=== PATIENT | female | born 1990 | race Caucasian/White ===

== ENCOUNTER → 2016-08-25 | Outpatient (CLI) | payer OTHER ==
[~2016-08-25] MED LIST: IMPLANON
[2016-08-25 17:55] LABS: BASO % 0.3 %; BASO ABS # 0.03 K/uL (0-0.2); COMPLETE YES; EOS % 1.7 %; HEMATOCRIT 41.7 % (37-47); IG% 0.2 %; LYMPH % 22.3 %; LYMPH ABS # 2.33 K/uL (1.2-3.4); MEAN CELL VOLUME 85.5 fL (80-100); MEAN CORPUSCULAR HEMOGLOBIN 29.9 pg (25-34); MEAN PLATELET VOLUME 11.9 fL (7.4-10.4); MONO % 8.8 %; NEUT % 66.7 %; PLATELET COUNT 248 K/uL (130-400); RED BLOOD COUNT 4.88 M/uL (4.2-5.4); WHITE BLOOD COUNT 10.44 K/uL (4.8-10.8)
[2016-08-25 18:05] LABS: BLOOD UREA NITROGEN 8 mg/dl (7-18); BUN/CREATININE RATIO 11.3 (10-20); CALCIUM 9.1 mg/dl (8.5-10.1); CARBON DIOXIDE 27 mmol/L (21-32); CHLORIDE 106 mmol/L (98-107); CREATININE 0.67 mg/dl (0.60-1.20); GLUCOSE 87 mg/dl (70-99); POTASSIUM 3.8 mmol/L (3.5-5.1); SODIUM 141 mmol/L (136-145)
== END | disposition home or self-care (01) ==
LOC: C.LABPVFM 15:18
PROVIDERS: ATTEND Nurse Practitioner
DX: R53.83 Other fatigue (principal); F32.9 Major depressive disorder, single episode, unspecified; R51 Headache

== ENCOUNTER 2017-07-24 19:33 | Emergency (ER) | payer OTHER ==
[~2017-07-24] VITALS: Ht 160 cm; Wt 90.0 kg
[2017-07-24 19:35] VITALS: TEMP 37.4; Ht 160 cm; Wt 90.0 kg
[2017-07-24] MEDS ORDERED: AZITHROMYCIN 250 MG TAB PO STA (19:46)
[2017-07-24] MEDS ORDERED: IBUPROFEN 600 MG TAB PO STA (19:46)
[2017-07-24] MEDS ORDERED: AZIT-60 PO (19:49)
[2017-07-24] MEDS ORDERED: ESCI10TA17 PO (19:50)
[2017-07-24] MEDS ORDERED: CHOL20009 PO (19:50)
[2017-07-24] MEDS ORDERED: IUD'IUD (19:50)
--- NOTE | 2017-07-24 19:52 | EMERGENCY ROOM VISIT NOTE ---
History Report prepared by Susan: Ingrid David Under the Supervision of: Dr. Curry Harvey M.D. First contact with patient: 19:39 Chief Complaint: ILLNESS Stated Complaint: SORE THROAT, FEVER, BODY ACHE History of Present Illness The patient is a 26 year old female who presents to the Emergency Room with complaints of a constant sore throat beginning yesterday. The patient states that she has been having body aches, a sore throat, headache, and a fever since yesterday. She reports that she took Tylenol yesterday without any relief. She notes that she has had strep throat once before and her symptoms feel very similar. The patient denies any abdominal pain and urinary symptoms. Source of History: patient Onset: yesterday Position: throat Quality: other (sore) Timing: constant Associated Symptoms: + fevers, + headache, No abdominal pain, No urinary symptoms Note: Pt complains of body aches. Review of Systems See HPI for pertinent positives & negatives. A total of 10 systems reviewed and were otherwise negative. Past Medical & Surgical Surgical Problems: (1) Nasal polyp (2) Status post tonsillectomy and adenoidectomy Family History No pertinent family history stated. 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 Throat mildly injected, able to swallow her own saliva. NECK: Supple no nuchal rigidity. No evidence of meningitis or encephalitis on exam. CHEST: Good equal expansion LUNGS: Clear and equal to auscultation CARDIAC: Normal S1 and S2 ABDOMEN: Soft nontender no guarding BACK: No CVA tenderness EXTREMITIES: No pain upon palpation normal muscle strength in all groups no clubbing cyanosis or edema NEURO: Patient is following commands and answering questions appropriately. Alert and oriented x3 Cranial Nerves 2-12 grossly intact Medical Decision & Procedures Medications Administered Medications (Trade) Dose Ordered Sig/Renny Route Start Time Stop Time Status Last Admin Dose Admin Azithromycin (Zithromax Tab) 500 mg NOW STAT PO 07/24/17 19:46 07/24/17 19:47 DC 07/24/17 20:04 500 MG Ibuprofen (Motrin Tab) 600 mg NOW STAT PO 07/24/17 19:46 07/24/17 19:47 DC 07/24/17 20:03 600 MG ED Course 1938: Past medical records reviewed. The patient was evaluated in room A11. A complete history and physical examination was performed. 1945: I offered to do lab work and the patient refused. 1945: Motrin Tab 600mg PO, Zithromax Tab 500mg PO. 1956: Upon reexamination the patient is doing well. I discussed results and treatment plan with the patient. She verbalizes agreement and understanding. The patient is ready for discharge. Medical Decision Differential diagnosis: Etiologies such as viral syndrome, tonsillitis, streptococcal pharyngitis, mononucleosis, peritonsillar abscess, retropharyngeal abscess, otitis, pneumonia , influenza, as well as others were entertained. This is a 26 rolled female who presents emergency department complaining of strep throat like symptoms. The patient reports that this is the wish to refill she has strep throat. She is refusing any other laboratory work. She has no evidence of meningitis encephalitis on examination and is able swallow her own saliva. The patient has been on azithromycin previously for her strep throat. Her strep at this point is negative however I'll write patient a prescription which she can take at home if she test positive over the next 48 hours. Patient and family were in agreement with the treatment plan. Medication Reconcilliation Current Medication List: was personally reviewed by me Blood Pressure Screening Patient's blood pressure: Normal blood pressure Blood pressure disposition: Did not require urgent referral Impression Primary Impression: Pharyngitis Scribe Attestation The scribe's documentation has been prepared under my direction and personally reviewed by me in its entirety. I confirm that the note above accurately reflects all work, treatment, procedures, and medical decision making performed by me. Departure Information Dispostion Home / Self-Care Prescriptions Azithromycin (ZITHROMAX) 250 Mg Tab 500 MG PO DAILY for 4 Days, #8 TAB Prov: Curry Harvey MD 07/24/17 Forms HOME CARE DOCUMENTATION FORM, IMPORTANT VISIT INFORMATION, WORK / SCHOOL INSTRUCTIONS Patient Instructions ED Pharyngitis Viral Report Pending, ED Strep Pharyngitis Poss, My [facility] Additional Instructions Increase fluids next 48 hours Take 1000 mg Tylenol every 6 hours Take 600 mg Ibuprofen every 6 hours You have been examined and treated today on an emergency basis only. This is not a substitute for, or an effort to provide, complete comprehensive medical care. It is impossible to recognize and treat all injuries or illnesses in a single emergency department visit. It is therefore important that you follow up closely with your PCP. Call as soon as possible for an appointment. Thank you for your time and consideration. I look forward to speaking with you again soon. Please don't hesitate to call us if you have any questions. Problem Qualifiers Primary Impression: Pharyngitis Pharyngitis/tonsillitis etiology: unspecified etiology Qualified Codes: J02.9 - Acute pharyngitis, unspecified
[2017-07-24 20:04] VITALS: BP 125/73; PULSE 100; O2SAT 96
== END 2017-07-24 20:05 | disposition home or self-care (01) ==
LOC: C.EDB 19:34 → C.EDA 20:05
DX: J02.9 Acute pharyngitis, unspecified (principal)

== ENCOUNTER 2025-01-18 19:28 | Inpatient (IN) ==
--- NOTE | 2025-01-18 19:56 | Emergency Department Note ---
Impression & Plan Abdominal pain, left lower quadrant, Perforated bowel ED Provider Note HISTORY OF PRESENT ILLNESS: Patient is a 34-year-old female presenting with abdominal pain. Patient reports she started having abdominal pain starting 2 weeks ago. Reports the pain worsened in the last week. Reports that she thought it was another episode of diverticulitis and called her primary care provider who started her on Augmentin 4 days ago. States that she was still having persistent pain and her doctor ordered a CT abdomen/pelvis with IV and oral contrast which was obtained yesterday. Patient reports she was called by her PCP today to present to the emergency department due to potential bowel perforation. Patient denies any nausea. Reports she is not really having much in terms of bowel movements. Reports that when she does have a bowel movement it is very small and abnormal. Denies any measured fevers. Denies any chest pain or shortness of breath. Denies any history of IBS or Crohn's. She reports she is never had surgery on her abdomen. ROS: as above PHYSICAL EXAM: Constitutional: Patient appears in no acute distress. HENT: Head: Normocephalic and atraumatic. Eyes: EOMI, PERRL Mouth/Throat: Mucous membranes moist. Neck: Trachea midline. Neck supple. Cardiovascular: Tachycardic with regular rhythm. No murmurs, rubs or gallops. Intact distal pulses. Pulmonary/Chest: No respiratory distress. Breath sounds clear and equal bilaterally. No wheezes or rales. Abdominal: Abdomen soft, no rebound or guarding. Left lower quadrant tender to palpation. Musculoskeletal: No edema, tenderness or deformity noted. Skin: Warm and dry. No rash, erythema, pallor or cyanosis Psychiatric: Appropriate mood and affect for situation. Neurological: Alert and keenly responsive. CN II-XII grossly intact, moving all extremities equally and fully. MDM: - Vitals signs showed hypertension and tachycardia. - History obtained via patient. History as above. - Chronic conditions affecting care: none - Differential diagnoses include, but are not limited to: Diverticulitis; bowel obstruction; bowel perforation - Order placed for continuous cardiac monitoring. At this time, monitor showed rate of 98 bpm with normal sinus rhythm, per my interpretation. - External medical records reviewed. CT abdomen/pelvis with IV and oral contrast obtained on 01/17/2025 at 1:14 PM was reviewed. It showed "rectosigmoid wall thickening with adjacent irregular 5.0 cm soft tissue attenuation and surrounding inflammatory changes and possible focus of free air. Differentials include rectosigmoid colitis with a contained perforation, inflammatory bowel disease of the rectosigmoid with developing fistula versus malignancy. Colonoscopy is recommended following treatment." CT imaging was read at 1521 on 01/18/2025. - Laboratory workup interpreted by myself showed slight leukocytosis (WBC 11.04); normal electrolytes; normal lactate; normal lipase; negative hCG - KUB negative for obvious pneumoperitoneum - Discussed case with general surgeon on-call, Dr. Escoto, 195. He recommended admission for IV antibiotics and GI consultation for colonoscopy. - 1L NS and IV zosyn ordered in ER. - Discussion was had with shoe parts caser about patient's case and need for admission - Hospitalist, Dr. Encinas, consulted for admission - Patient admitted to [facility] for further evaluation and management. ASSESSMENT AND PLAN: Diagnosis: Left lower quadrant abdominal pain; bowel perforation Plan: Admit Past Med/Surg History Problem List (Updated 01/18/25 @ 22:24 by Madhavi Bernstein MD) Abdominal pain, left lower quadrant (Acute) Perforated bowel (Acute) Abdominal pain Diverticulitis large intestine Social History Smoking Status: Never smoker Preferred Language: Maltese Feels Safe at Home: Yes Allergies Allergies Allergy/AdvReac Type Severity Reaction Status Date / Time amoxicillin Allergy Intermediate RASH Unverified 07/24/17 19:51 Penicillins Allergy Mild Unverified 07/24/17 19:51 Home Meds Home Medications Medication Instructions Recorded Confirmed No Known Home Medications 01/18/25 01/18/25 Results & Data (ED) Vital Signs Vital Signs - 24 hr 01/18/25 19:29 01/18/25 20:00 01/18/25 20:08 Temperature 36.6 C Temperature Source Temporal Artery Scan Pulse Rate 106 H 101 H 103 H Pulse Rate from SpO2 Sensor Pulse Rhythm Respiratory Rate 16 20 Respiratory Effort / Characteristics Non-Labored Spontaneous Respiratory Depth Normal Blood Pressure 142/91 H 119/89 Blood Pressure Mean 108 95 Blood Pressure Position Sitting Pulse Oximetry 98 99 Oxygen Delivery Method Room Air Oxygen Flow Rate Sepsis Recent Fever Within 48 Hours No Sepsis New/Unexplained Change in Mental Status No Sepsis Action Taken by Nursing No Action Required 01/18/25 20:25 01/18/25 20:30 01/18/25 20:31 Temperature Temperature Source Pulse Rate 100 H 90 98 H Pulse Rate from SpO2 Sensor 95 H Pulse Rhythm Regular Respiratory Rate 20 16 22 Respiratory Effort / Characteristics Respiratory Depth Blood Pressure 118/91 118/91 Blood Pressure Mean 100 105 Blood Pressure Position Pulse Oximetry 98 98 100 Oxygen Delivery Method Room Air Oxygen Flow Rate 0 Sepsis Recent Fever Within 48 Hours Sepsis New/Unexplained Change in Mental Status Sepsis Action Taken by Nursing Laboratory Data 01/18/25 20:10 01/18/25 20:10 Lab Results 01/18/25 01/18/25 Range/Units 19:50 20:10 WBC 11.04 H (4.8-10.8) K/ul RBC 4.72 (4.20-5.40) M/uL Hgb 12.9 (12.0-16.0) g/dl Hct 39.8 (37.0-47.0) % MCV 84.3 (80.0-100.0) fL MCH 27.3 (25.0-34.0) pg MCHC 32.4 (32.0-36.0) g/dL RDW Std Deviation 36.5 (36.4-46.3) fL RDW Coeff of Radha 12.0 (11.5-14.5) % Plt Count 364 (130-400) K/uL MPV 10.7 (9.4-12.4) fL Immature Gran % (Auto) 0.5 % Neut % (Auto) 76.1 % Lymph % (Auto) 16.4 % [place] % (Auto) 5.8 % Eos % (Auto) 0.7 % Baso % (Auto) 0.5 % Neut # (Auto) 8.40 H (1.40-6.50) K/uL Lymph # (Auto) 1.81 (1.20-3.40) K/uL [place] # (Auto) 0.64 H (0.11-0.59) K/uL Eos # (Auto) 0.08 (0.00-0.50) K/uL Baso # (Auto) 0.05 (0.00-0.20) K/uL Immature Gran # (Auto) 0.06 (0.01-0.20) K/uL Sodium 140 (136-145) mmol/L Potassium 4.0 (3.5-5.1) mmol/L Chloride 106 (98-107) mmol/L Carbon Dioxide 26 (21-32) mmol/L Anion Gap 8 (3-11) BUN 17 (6-23) mg/dl Creatinine 0.67 (0.6-1.2) mg/dl Est Cr Clr Drug Dosing 132.8 ml/min eGFR 117.55 BUN/Creatinine Ratio 25.4 H (10-20) Glucose 87 (70-99(Fasting)) mg/dl Lactate 0.6 (0.4-2.0) mmol/L Calcium 9.3 (8.6-10.3) mg/dl Total Bilirubin 0.5 (0.2-1.0) mg/dl AST 9 L (13-39) U/L ALT 18 (7-52) U/L Alkaline Phosphatase 141 H (34-104) U/L Total Protein 7.8 (6.0-8.3) gm/dl Albumin 4.1 (3.4-5.0) gm/dl Globulin 3.7 (2.5-4.0) gm/dl Albumin/Globulin Ratio 1.1 (0.9-2) Lipase 19 (11-82) U/L HCG, Qual Negative (Negative) Urine Color Yellow Urine Appearance Cloudy A (Clear) Urine pH 5.5 (4.5-7.5) Ur Specific [place]inn 1.038 H (1.000-1.030) Urine Protein Trace H (Negative) Urine Glucose (UA) Negative (Negative) Urine Ketones 1+ H (Negative) Urine Blood Trace H (Negative) Urine Nitrite Negative (Negative) Urine Bilirubin Negative (Negative) Urine Urobilinogen Negative (Negative) Ur Leukocyte Esterase Negative (Negative) Urine WBC (Auto) 0-5 (0-5) /hpf Urine RBC (Auto) 3-5 H (0-2) /hpf U Hyaline Cast (Auto) 0-2 (0-2) /lpf U Epithel Cells (Auto) 0-2 (0-2) /hpf Urine Bacteria (Auto) None Seen (None Seen) Urine Comment Administered Medications Discontinued Medications Sodium Chloride (Nss) 1,000 mls @ 999 mls/hr IV .Q1H1M ONE Stop: 01/18/25 20:37 Last Infusion: 01/18/25 21:46 Dose: Infused Documented By: Admin: 01/18/25 20:16 Dose: 999 mls/hr Documented By: ZAHEER Piperacillin Sod/Tazobactam Sod (Zosyn) 4.5 gm in 100 mls @ 200 mls/hr IV NOW ONE; Protocol Stop: 01/18/25 20:20 Last Infusion: 01/18/25 20:50 Dose: Infused Documented By: Admin: 01/18/25 20:16 Dose: 200 mls/hr Documented By: ZAHEER Imaging Data Radiologist's Impression: KUB X-Ray 01/18/25 19:34 Exam(s): XR KUB EXAM: XR Abdomen, 1 View CLINICAL HISTORY: reported bowel perf yesterday. TECHNIQUE: Frontal supine view of the abdomen/pelvis. COMPARISON: CT abdomen and pelvis 02/14/2024 FINDINGS: Intraperitoneal space: Nonspecific bowel gas pattern with scattered gas predominantly in nondilated colonic segments. Moderate stool burden. Evaluation for pneumoperitoneum is limited on this single projection presumed supine study. Gastrointestinal tract: Unremarkable. No dilation. 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 Bones/joints: Curvilinear density overlying the right iliac crest is presumed hyperdense material in a normal-caliber appendix. Incidental IUD noted in central pelvis. No acute fracture. IMPRESSION: Limited single projection examination demonstrates a nonspecific, nonobstructive bowel gas pattern. Evaluation for pneumoperitoneum is limited. Electronically signed by: Vinny Renee MD 01/18/25 20:49 PM Discharge Plan Visit Data Chief Complaint: Abdominal Pain Stated Complaint: ABD ISSUES ED Provider: Madhavi Bernstein Discharge Problem: Abdominal pain, left lower quadrant, Perforated bowel Condition: Fair Forms Stand Alone Forms: Art Circle Prescriptions Prescriptions: No Action No Known Home Medications Referrals Referrals: Viviana Del Rio DO [Primary Care Provider] -
[2025-01-18] MEDS: SODIUM CHLORIDE 0.9% 1,000 ML IV ONE (20:16)
[2025-01-18] MEDS: PIPERACILLIN/TAZOBACTAM 4.5 GM/100 ML BAG IV ONE (20:16)
[2025-01-18 20:17] LABS: Appearance Urine Cloudy (Clear); Bacteria Urine Automated None Seen (None Seen); Bilirubin Urine Negative (Negative); Blood Urine Trace (Negative); Cast Urine Automated 0-2 /lpf (0-2); Color Urine Yellow; Epithelial Cell Urine Auto 0-2 /hpf (0-2); Glucose Urine UA Negative (Negative); Ketones Urine 1+ (Negative); Leukocyte Esterase Urine Negative (Negative); Nitrite Urine Negative (Negative); Protein Urine Trace (Negative); Specific Gravity Urine 1.038 (1.000-1.030); Urobilinogen Urine Negative (Negative); WBC Urine Automated 0-5 /hpf (0-5); pH Urine 5.5 (4.5-7.5)
[2025-01-18 20:43] LABS: Pregnancy Test, Serum Negative (Negative)
[2025-01-18 20:44] LABS: Albumin Globulin Ratio 1.1 (0.9-2); Albumin Level 4.1 gm/dl (3.4-5.0); BUN Creatinine Ratio 25.4 (10-20); Bilirubin,Total 0.5 mg/dl (0.2-1.0); Calcium 9.3 mg/dl (8.6-10.3); Creatinine Clr Calc Pharmacy 132.8 ml/min; Globulin 3.7 gm/dl (2.5-4.0); Total Protein 7.8 gm/dl (6.0-8.3)
[2025-01-18 20:49] LABS: Basophils # (auto) 0.05 K/uL (0.00-0.20); Basophils % (auto) 0.5 %; Eosinophils # (auto) 0.08 K/uL (0.00-0.50); Eosinophils % (auto) 0.7 %; Hematocrit (blood only) 39.8 % (37.0-47.0); Hemoglobin 12.9 g/dl (12.0-16.0); Immature Granulocytes # (auto) 0.06 K/uL (0.01-0.20); Immature Granulocytes % (auto) 0.5 %; Lymphocytes # (auto) 1.81 K/uL (1.20-3.40); Lymphocytes % (auto) 16.4 %; Mean Corpuscular Hemoglobin 27.3 pg (25.0-34.0); Mean Corpuscular Hgb Conc 32.4 g/dL (32.0-36.0); Mean Corpuscular Volume 84.3 fL (80.0-100.0); Mean Platelet Volume 10.7 fL (9.4-12.4); Monocytes # (auto) 0.64 K/uL (0.11-0.59); Monocytes % (auto) 5.8 %; Neutrophils % (auto) 76.1 %; Platelet Count 364 K/uL (130-400); RDW Standard Deviation 36.5 fL (36.4-46.3); Red Blood Count 4.72 M/uL (4.20-5.40); White Blood Count 11.04 K/ul (4.8-10.8)
--- NOTE | 2025-01-18 20:50 | XRay Report ---
Exam(s): XR KUB EXAM: XR Abdomen, 1 View CLINICAL HISTORY: reported bowel perf yesterday. TECHNIQUE: Frontal supine view of the abdomen/pelvis. COMPARISON: CT abdomen and pelvis 02/14/2024 FINDINGS: Intraperitoneal space: Nonspecific bowel gas pattern with scattered gas predominantly in nondilated colonic segments. Moderate stool burden. Evaluation for pneumoperitoneum is limited on this single projection presumed supine study. Gastrointestinal tract: Unremarkable. No dilation. 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 Bones/joints: Curvilinear density overlying the right iliac crest is presumed hyperdense material in a normal-caliber appendix. Incidental IUD noted in central pelvis. No acute fracture. IMPRESSION: Limited single projection examination demonstrates a nonspecific, nonobstructive bowel gas pattern. Evaluation for pneumoperitoneum is limited. Electronically signed by: Vinny Renee MD 01/18/25 20:49 PM
--- NOTE | 2025-01-18 21:27 | History & Physical Report ---
Date of Service January 18, 2025 Assessment & Plan (1) Diverticulitis large intestine: Plan: Patient admitted for abdominal pain, diverticulitis and failed outpatient therapy. CT scan yesterday as an outpatient showed rectosigmoid wall thickening with adjacent irregular 5 cm soft tissue attenuation and surrounding inflammatory changes and possible focus of free air. Continue IV Zosyn Continue IV fluids N.p.o. Consult surgery Consult GI (2) Abdominal pain: Plan: Analgesia as needed (3) Perforated bowel: Plan: R/O perforation. CT scan yesterday as an outpatient showed rectosigmoid wall thickening with adjacent irregular 5 cm soft tissue attenuation and surrounding inflammatory changes and possible focus of free air. Plan Pt is a full code A total of 60 minutes spent in care planning for this patient History of Present Illness Chief Complaint: Worsening abdominal pain Primary Care Provider: Viviana Del Rio DO Trinidad Suresh is a 34 y/o F who presents with worsening abdominal pain and diverticulitis. She has had abdominal pain in the left lower quadrant for about 2 weeks. She called her primary care provider who started her on Augmentin 4 days ago. She that she was still having persistent pain despite the antibiotic and her PCP ordered a CT abdomen/pelvis with IV and oral contrast which was obtained yesterday. Patient reports she was called by her PCP today to present to the emergency department due to potential walled off bowel perforation versus inflammatory bowel disease versus mass with fistula. Patient denies nausea. Reports she is not really having much in terms of bowel movements. Reports that when she does have a bowel movement it is very small and abnormal. Denies any fevers or chills. Denies any chest pain or shortness of breath. Denies any history of IBS or Crohn's. She reports she has not had prior surgery on her abdomen. In the ED the patient was started on IV Zosyn. She was given IV fluids and surgery was consulted. WBC is mildly elevated at 11.04 otherwise her labs look unremarkable Allergies Allergy/AdvReac Type Severity Reaction Status Date / Time amoxicillin Allergy Intermediate RASH Unverified 07/24/17 19:51 Penicillins Allergy Mild Unverified 07/24/17 19:51 Home Medications Medication Instructions Recorded Confirmed Type No Known Home Medications 01/18/25 01/18/25 History Past Med/Surg History Problem List (Updated 01/18/25 @ 21:29 by Aron Burgos DO) Perforated bowel Abdominal pain Diverticulitis large intestine Social History Smoking Status: Never smoker Preferred Language: [place] Feels Safe at Home: Yes Review of Systems Review of Systems: Constitutional- no fever; no weight loss Eyes- no acute visual changes ENT- no sinus drainage; no pharyngitis Pulmonary- no cough, no wheezing, no shortness of breath Cardiac- no chest pain, no palpitations, no orthopnea, no dependent edema GI- no nausea, no vomiting, no diarrhea, no melena, no hematochezia - no dysuria, no hematuria Musculoskeletal- no arthralgias, no myalgias Derm- no rashes, no new skin lesions, no changing skin lesions Hematologic- no unusual bruising, no unusual bleeding Lymphatics- no adenopathy Endocrine- no polyuria or polydipsia; no heat or cold intolerance Neuro- no headaches, no focal neurologic symptoms Psych- no anxiety, no depression Physical Exam Physical Exam: General- adult Head- atraumatic Eyes- PERRL, EOMI, anicteric ENT- oropharynx clear Neck- supple, no JVD, no adenopathy, no thyromegaly; carotids +2/2, no bruits appreciated Lungs- clear to auscultation and percussion Heart- regular rhythm; no murmur, no gallop, no rub appreciated Abdomen- normal bowel sounds, soft, nontender, no masses or hepatosplenomegaly Extremities- no pretibial edema, no calf tenderness; peripheral pulses intact Neuro- alert, oriented x 3; PERRL, EOMI; no facial palsy; no dysarthria; motor 5/5 bilaterally; no cogwheel rigidity; patellar DTRs +2/2; toes downgoing bilaterally; finger to nose intact bilaterally Skin- warm & dry Results & Data Results & Data Vital Signs (Past 12 Hours) Vital Signs Temp Pulse Resp BP Pulse Ox O2 Del Method O2 Flow Rate 01/18/25 20:30 90 16 118/91 98 01/18/25 20:25 100 H 20 98 Room Air 0 01/18/25 20:08 103 H 01/18/25 20:00 101 H 20 119/89 99 01/18/25 19:29 36.6 C 106 H 16 142/91 H 98 Room Air Diagnostic Findings Laboratory Results WBC 11.04 K/ul (4.8-10.8) H 06/18/25 20:10 RBC 4.72 M/uL (4.20-5.40) 01/18/25 20:10 Hgb 12.9 g/dl (12.0-16.0) 01/18/25 20:10 Hct 39.8 % (37.0-47.0) 01/18/25 20:10 MCV 84.3 fL (80.0-100.0) 01/18/25 20:10 MCH 27.3 pg (25.0-34.0) 01/18/25 20:10 MCHC 32.4 g/dL (32.0-36.0) 01/18/25 20:10 RDW Std Deviation 36.5 fL (36.4-46.3) 01/18/25 20:10 RDW Coeff of Radha 12.0 % (11.5-14.5) 01/18/25 20:10 Plt Count 364 K/uL (130-400) 01/18/25 20:10 MPV 10.7 fL (9.4-12.4) 01/18/25 20:10 Immature Gran % (Auto) 0.5 % 01/18/25 20:10 Neut % (Auto) 76.1 % 01/18/25 20:10 Lymph % (Auto) 16.4 % 01/18/25 20:10 [place] % (Auto) 5.8 % 01/18/25 20:10 Eos % (Auto) 0.7 % 01/18/25 20:10 Baso % (Auto) 0.5 % 01/18/25 20:10 Neut # (Auto) 8.40 K/uL (1.40-6.50) H 01/18/25 20:10 Lymph # (Auto) 1.81 K/uL (1.20-3.40) 01/18/25 20:10 [place] # (Auto) 0.64 K/uL (0.11-0.59) H 01/18/25 20:10 Eos # (Auto) 0.08 K/uL (0.00-0.50) 01/18/25 20:10 Baso # (Auto) 0.05 K/uL (0.00-0.20) 01/18/25 20:10 Immature Gran # (Auto) 0.06 K/uL (0.01-0.20) 01/18/25 20:10 Sodium 140 mmol/L (136-145) 01/18/25 20:10 Potassium 4.0 mmol/L (3.5-5.1) 01/18/25 20:10 Chloride 106 mmol/L (98-107) 01/18/25 20:10 Carbon Dioxide 26 mmol/L (21-32) 01/18/25 20:10 Anion Gap 8 (3-11) 01/18/25 20:10 BUN 17 mg/dl (6-23) 01/18/25 20:10 Creatinine 0.67 mg/dl (0.6-1.2) 01/18/25 20:10 Est Cr Clr Drug Dosing 132.8 ml/min 01/18/25 20:10 eGFR 117.55 01/18/25 20:10 BUN/Creatinine Ratio 25.4 (10-20) H 01/18/25 20:10 Glucose 87 mg/dl (70-99(Fasting)) 01/18/25 20:10 Lactate 0.6 mmol/L (0.4-2.0) 01/18/25 20:10 Calcium 9.3 mg/dl (8.6-10.3) 01/18/25 20:10 Total Bilirubin 0.5 mg/dl (0.2-1.0) 01/18/25 20:10 AST 9 U/L (13-39) L 01/18/25 20:10 ALT 18 U/L (7-52) 01/18/25 20:10 Alkaline Phosphatase 141 U/L (34-104) H 01/18/25 20:10 Total Protein 7.8 gm/dl (6.0-8.3) 01/18/25 20:10 Albumin 4.1 gm/dl (3.4-5.0) 01/18/25 20:10 Globulin 3.7 gm/dl (2.5-4.0) 01/18/25 20:10 Albumin/Globulin Ratio 1.1 (0.9-2) 01/18/25 20:10 Lipase 19 U/L (11-82) 01/18/25 20:10 HCG, Qual Negative (Negative) 01/18/25 20:10 Urine Color Yellow 01/18/25 19:50 Urine Appearance Cloudy (Clear) A 01/18/25 19:50 Urine pH 5.5 (4.5-7.5) 01/18/25 19:50 Ur Specific [place] 1.038 (1.000-1.030) H 01/18/25 19:50 Urine Protein Trace (Negative) H 01/18/25 19:50 Urine Glucose (UA) Negative (Negative) 01/18/25 19:50 Urine Ketones 1+ (Negative) H 01/18/25 19:50 Urine Blood Trace (Negative) H 01/18/25 19:50 Urine Nitrite Negative (Negative) 01/18/25 19:50 Urine Bilirubin Negative (Negative) 01/18/25 19:50 Urine Urobilinogen Negative (Negative) 01/18/25 19:50 Ur Leukocyte Esterase Negative (Negative) 01/18/25 19:50 Urine WBC (Auto) 0-5 /hpf (0-5) 01/18/25 19:50 Urine RBC (Auto) 3-5 /hpf (0-2) H 01/18/25 19:50 U Hyaline Cast (Auto) 0-2 /lpf (0-2) 01/18/25 19:50 U Epithel Cells (Auto) 0-2 /hpf (0-2) 01/18/25 19:50 Urine Bacteria (Auto) None Seen (None Seen) 01/18/25 19:50 Urine Comment 01/18/25 19:50 Impressions KUB X-Ray 01/18/25 19:34 Exam(s): XR KUB EXAM: XR Abdomen, 1 View CLINICAL HISTORY: reported bowel perf yesterday. TECHNIQUE: Frontal supine view of the abdomen/pelvis. COMPARISON: CT abdomen and pelvis 02/14/2024 FINDINGS: Intraperitoneal space: Nonspecific bowel gas pattern with scattered gas predominantly in nondilated colonic segments. Moderate stool burden. Evaluation for pneumoperitoneum is limited on this single projection presumed supine study. Gastrointestinal tract: Unremarkable. No dilation. 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 Bones/joints: Curvilinear density overlying the right iliac crest is presumed hyperdense material in a normal-caliber appendix. Incidental IUD noted in central pelvis. No acute fracture. IMPRESSION: Limited single projection examination demonstrates a nonspecific, nonobstructive bowel gas pattern. Evaluation for pneumoperitoneum is limited. Electronically signed by: Vinny Renee MD 01/18/25 20:49 PM
[2025-01-18] MEDS ORDERED: MELATONIN 3 MG TAB PO PRN (23:24)
[2025-01-18] MEDS ORDERED: HYDROmorphone INJ 0.5 MG/0.5 ML SYR IV PRN (23:24)
[2025-01-18] MEDS ORDERED: ALUMINUM/MAGNESIUM SUSP 30 ML UDC PO PRN (23:24)
[2025-01-18] MEDS ORDERED: ONDANSETRON INJ 2 MG/ML 2 ML VIAL IV PRN (23:24)
[2025-01-18] MEDS: ACETAMINOPHEN 325 MG TAB PO PRN (23:28)
[2025-01-18] MEDS: SODIUM CHLORIDE 0.9% 500 ML IV SCH (23:52)
[2025-01-19] MEDS: PIPERACILLIN/TAZOBACTAM 4.5 GM/100 ML BAG IV SCH (02:54)
[2025-01-19 05:58] LABS: Hematocrit (blood only) 36.9 % (37.0-47.0); Hemoglobin 12.1 g/dl (12.0-16.0); Mean Corpuscular Hemoglobin 27.6 pg (25.0-34.0); Mean Corpuscular Hgb Conc 32.8 g/dL (32.0-36.0); Mean Corpuscular Volume 84.1 fL (80.0-100.0); Mean Platelet Volume 10.4 fL (9.4-12.4); Platelet Count 327 K/uL (130-400); RDW Coefficient of Variation 11.9 % (11.5-14.5); RDW Standard Deviation 36.3 fL (36.4-46.3); Red Blood Count 4.39 M/uL (4.20-5.40); White Blood Count 10.33 K/ul (4.8-10.8)
[2025-01-19 06:14] LABS: BUN Creatinine Ratio 21.1 (10-20); Calcium 8.4 mg/dl (8.6-10.3); Magnesium 2.1 mg/dl (1.7-2.4)
--- NOTE | 2025-01-19 09:41 | Surgery Consultation ---
Date of Consultation January 19, 2025 Assessment & Plan (1) Diverticulitis large intestine: most likely diverticular process IV abx can begin clears if GI not planning more urgent colonoscopy will definitively need colonoscopy either as inpatient or outpatient no surgical intervention indicated as improving on abx once colon is evaluated would recommend out-patient follow-up with colorectal surgeon for consideration of resection History of Present Illness Attending Physician: Beatrice Gonsales MD History of Present Illness This is 34YO admitted with acute LLQ abdominal pain that started 2 weeks ago. She was previously treated for diverticular attack. She was started as an outpatient on Augmentin. She did not respond well and her doctor ordered a CT abdomen/pelvis with IV and oral contrast which was obtained which showed reportedly a sigmoid inflammatory process and a possible retroperitoneal perforation. No fevers, chest pain or shortness of breath. She denies any history of IBS or Crohn's. She feels better this AM after IV abx begun. Allergies Allergy/AdvReac Type Severity Reaction Status Date / Time amoxicillin Allergy Intermediate RASH Verified 01/18/25 23:54 Penicillins Allergy Mild Rash Verified 01/18/25 23:54 Home Medications Medication Instructions Recorded Confirmed Type No Known Home Medications 01/18/25 01/18/25 History Patient History Social History Smoking Status: Never smoker Hx Alcohol Use: No Hx Substance Use: No Preferred Language: [place] Communication Ability: Effective Sound Effects Supervisor Required: No Beliefs That Will Affect Care: None Current Living Situation: Family Feels Safe at Home: Yes Review of Systems Constitutional: no fever, no chills and no anorexia Eyes: no problem reported Ear, Nose, Mouth, Throat: no problem reported Respiratory: no cough and no dyspnea Cardiovascular: no chest pain Gastrointestinal: + abdominal pain; no nausea, no vomiting and no change in bowel habits Genitourinary: no dysuria Musculoskeletal: no back pain Integumentary: no problem reported Neurologic: no localized weakness and no generalized weakness Psychiatric: no behavioral changes Hematologic / Lymphatic: no easy bleeding and no easy bruising Physical Exam Constitutional: WD/WN, vitals as above Eyes: no scleral abnormality ENMT: external ear and nose normal, oropharynx normal Neck: trachea midline Respiratory: normal respiratory effort Cardiovascular: Rate/Rhythm: regular rate and regular rhythm Gastrointestinal (Abdomen): Inspection/Auscultation: abdomen normal to inspection; abdomen not distended Percussion/Palpation: + abdomen tender and abdomen soft; no guarding and abdomen not rigid Musculoskeletal: Head/Neck/Chest: normocephalic and head atraumatic Skin: no rashes, warm and dry Results & Data Vital Signs (Past 12 Hours) Vital Signs Temp Pulse Pulse Pulse Pulse Resp BP 01/19/25 07:38 36.7 C 82 16 01/18/25 23:42 01/18/25 23:42 36.7 C 92 H 18 01/18/25 22:30 92 H 22 147/93 H 01/18/25 22:00 96 H 20 BP BP Pulse Ox O2 Del Method 01/19/25 07:38 110/76 98 Room Air 01/18/25 23:42 Room Air 01/18/25 23:42 132/83 98 Room Air 01/18/25 22:30 97 01/18/25 22:00 122/77 99 Room Air
--- NOTE | 2025-01-19 09:57 | Gastrointestinal Consultation ---
Date of Consultation January 19, 2025 Assessment & Plan (1) Diverticulitis large intestine: 34 year old female with history of anxiety and others below who is admitted for management of abnormal imaging w/ concern for diverticulitis w/ perforation. CTAP yesterday w/ rectosigmoid wall thickening with adjacent irregular 5.0 cm soft tissue attenuation and surrounding inflammatory changes and possible focus of free air. She is improving in IV abx and notes improvement of pain frequency and severity. No acute indication for endoscopic evaluation. Appreciate general surgery recommendations. Recommend NPO for bowel rest w/ dietary advancement per general surgery. Continue IV ABX. Should keep OP colonoscopy with [facility] as scheduled. I spent a total of 50 minutes on the date of service in review of patient's record, and previously obtained information in person and appropriate medical visit, discussion and education of plan, with patient and/or caregiver, placing orders for tests/referral/procedures as medically necessary and documentation of pertinent clinical information in patient's medical records for their visit today. Supervising Physician Co-Signing Physician Notes Second bout of diverticulitis in a year. Responds fairly promptly to antibiotics. CT consistent with diverticulitis. Atypical is her young age and female sex. Recommend treat as diverticulitis outpatient colonoscopy. Prevention of recurrent diverticulitis is an inexact signs. Though we recommended she increase her dietary fiber once this is resolved. Avoid too much red meat and avoid NSAIDs. Vitamin D supplements can be helpful. Patient does note she is vitamin D deficient. Vitamin D deficiency seems to be associated increased risk of diverticulitis relapse. History of Present Illness Reason for Consultation: Diverticulitis with possible perforation Requesting Physician: Beatrice Gonsales MD Attending Physician: Beatrice Gonsales MD History of Present Illness 34 year old female with history of anxiety and others below who is admitted for management of abnormal imaging w/ concern for diverticulitis w/ perforation. She notes she was treated w/ a course of ABX about two weeks ago as an OP for weber spected diverticulitis w/ plan for an OP CT. Her symptoms of lower abdominal pain worsened over the last week despite dietary change and ABX use. CTAP yesterday w/ rectosigmoid wall thickening with adjacent irregular 5.0 cm soft tissue attenuation and surrounding inflammatory changes and possible focus of free air. She was admitted through the ED, made NPO and started on IV ABX. This AM she notes she is more comfortable. Abd pain is improving. Pain is less severe, less frequent. Denies black or bloody stools. Denies any chronic GI symptoms but does report an episode of diverticulitis about one year ago. Is scheduled for an OP colonoscopy in March with [facility]. CTAP 2024: Peritoneum/Retroperitoneum: Irregular 5.0 x 4.6 cm soft tissue attenuation with surrounding inflammatory changes. Possible focus of free air twin the bowel and soft tissue area. Diffuse wall thickening of the rectosigmoid. No additional abnormal bowel wall thickening or dilated bowel loops. Normal appendix. No significant inflammation of the terminal ileum. Lymph nodes: No lymphadenopathy. IMPRESSION Rectosigmoid wall thickening with adjacent irregular 5.0 cm soft tissue attenuation and surrounding inflammatory changes and possible focus of free air. Differentials include rectosigmoid colitis with contained perforation, inflammatory bowel disease of the rectosigmoid with developing fistula versus malignancy. Colonoscopy is recommended following treatment. Allergies Allergy/AdvReac Type Severity Reaction Status Date / Time No Known Allergies Allergy Verified 01/19/25 11:44 Home Medications Medication Instructions Recorded Confirmed Type No Known Home Medications 01/18/25 01/18/25 History Patient History Social History Smoking Status: Never smoker Hx Alcohol Use: No Hx Substance Use: No Preferred Language: [place] Communication Ability: Effective Cnmt Required: No Beliefs That Will Affect Care: None Current Living Situation: Family Feels Safe at Home: Yes Assistive Devices: None Review of Systems Review of Systems: All other findings negative except as noted in HPI. Physical Exam Constitutional: WD/WN, vitals as above Respiratory: normal respiratory effort, lungs clear to auscultation Cardiovascular: Rate/Rhythm: regular rate and regular rhythm Gastrointestinal (Abdomen): Percussion/Palpation: + abdomen tender and abdomen soft; no guarding and abdomen not rigid Skin: no rashes, warm and dry Results & Data Vital Signs (Past 12 Hours) Vital Signs Temp Pulse Pulse Pulse Pulse Resp BP 01/19/25 07:38 98.1 F 82 16 01/18/25 23:42 01/18/25 23:42 98.1 F 92 H 18 01/18/25 22:30 92 H 22 147/93 H 01/18/25 22:00 96 H 20 BP BP Pulse Ox O2 Del Method 01/19/25 07:38 110/76 98 Room Air 01/18/25 23:42 Room Air 01/18/25 23:42 132/83 98 Room Air 01/18/25 22:30 97 01/18/25 22:00 122/77 99 Room Air Laboratory Results 01/19/25 01/18/25 01/18/25 Range/Units 05:36 20:10 19:50 WBC 10.33 11.04 H (4.8-10.8) K/ul RBC 4.39 4.72 (4.20-5.40) M/uL Hgb 12.1 12.9 (12.0-16.0) g/dl Hct 36.9 L 39.8 (37.0-47.0) % MCV 84.1 84.3 (80.0-100.0) fL MCH 27.6 27.3 (25.0-34.0) pg MCHC 32.8 32.4 (32.0-36.0) g/dL RDW Std Deviation 36.3 L 36.5 (36.4-46.3) fL RDW Coeff of Radha 11.9 12.0 (11.5-14.5) % Plt Count 327 364 (130-400) K/uL MPV 10.4 10.7 (9.4-12.4) fL Immature Gran % (Auto) 0.5 % Neut % (Auto) 76.1 % Lymph % (Auto) 16.4 % [place] % (Auto) 5.8 % Eos % (Auto) 0.7 % Baso % (Auto) 0.5 % Neut # (Auto) 8.40 H (1.40-6.50) K/uL Lymph # (Auto) 1.81 (1.20-3.40) K/uL [place] # (Auto) 0.64 H (0.11-0.59) K/uL Eos # (Auto) 0.08 (0.00-0.50) K/uL Baso # (Auto) 0.05 (0.00-0.20) K/uL Immature Gran # (Auto) 0.06 (0.01-0.20) K/uL Sodium 138 140 (136-145) mmol/L Potassium 4.0 4.0 (3.5-5.1) mmol/L Chloride 108 H 106 (98-107) mmol/L Carbon Dioxide 24 26 (21-32) mmol/L Anion Gap 6 8 (3-11) BUN 12 17 (6-23) mg/dl Creatinine 0.57 L 0.67 (0.6-1.2) mg/dl Est Cr Clr Drug Dosing 156.0 132.8 ml/min eGFR 122.22 117.55 BUN/Creatinine Ratio 21.1 H 25.4 H (10-20) Glucose 91 87 (70-99(Fasting)) mg/dl Lactate 0.6 (0.4-2.0) mmol/L Calcium 8.4 L 9.3 (8.6-10.3) mg/dl Magnesium 2.1 (1.7-2.4) mg/dl Total Bilirubin 0.5 (0.2-1.0) mg/dl AST 9 L (13-39) U/L ALT 18 (7-52) U/L Alkaline Phosphatase 141 H (34-104) U/L Total Protein 7.8 (6.0-8.3) gm/dl Albumin 4.1 (3.4-5.0) gm/dl Globulin 3.7 (2.5-4.0) gm/dl Albumin/Globulin Ratio 1.1 (0.9-2) Lipase 19 (11-82) U/L HCG, Qual Negative (Negative) Urine Color Yellow Urine Appearance Cloudy A (Clear) Urine pH 5.5 (4.5-7.5) Ur Specific [place] 1.038 H (1.000-1.030) Urine Protein Trace H (Negative) Urine Glucose (UA) Negative (Negative) Urine Ketones 1+ H (Negative) Urine Blood Trace H (Negative) Urine Nitrite Negative (Negative) Urine Bilirubin Negative (Negative) Urine Urobilinogen Negative (Negative) Ur Leukocyte Esterase Negative (Negative) Urine WBC (Auto) 0-5 (0-5) /hpf Urine RBC (Auto) 3-5 H (0-2) /hpf U Hyaline Cast (Auto) 0-2 (0-2) /lpf U Epithel Cells (Auto) 0-2 (0-2) /hpf Urine Bacteria (Auto) None Seen (None Seen) Urine Comment PG Care Time/CCT Total # of Minutes Spent Total Time Spent with Patient: Total time spent is greater than 50% in coordination of care (as documented) at patient's floor/unit and/or counseling patient: Coding Level of Care Code 60548 IN/OBS CONSULT LVL 3,45M Diagnoses Diverticulitis large intestine K57.32
[2025-01-19] MEDS ORDERED: Nursing to Pharmacy Communication SCH (11:45)
--- NOTE | 2025-01-19 13:32 | Hospitalist Progress Note ---
Date of Service January 19, 2025 Assessment & Plan (1) Diverticulitis large intestine: Plan: Patient admitted for abdominal pain, diverticulitis and failed outpatient therapy. CT scan yesterday as an outpatient showed rectosigmoid wall thickening with adjacent irregular 5 cm soft tissue attenuation and surrounding inflammatory changes and possible focus of free air. Continue IV Zosyn Continue IV fluids Appreciate surgery input and recommendation for conservative management Appreciate GI input and recommendation She has been feeling much better, left lower quadrant abdominal pain is better and no sign of guarding and rigidity No fever no chills and white count is elevated Will start clears orally and continue current care (2) Abdominal pain: Plan: Analgesia as needed (3) Perforated bowel: Plan: R/O perforation. CT scan yesterday as an outpatient showed rectosigmoid wall thickening with adjacent irregular 5 cm soft tissue attenuation and surrounding inflammatory changes and possible focus of free air. Doubt any perforation If observing Plan DVT prophylaxis SCDs for now and increase ambulation Pt is a full code Admission and Anticipated Discharge Date Admission Date: January 18, 2025 Subjective 01/19/2025 The patient was seen and examined in medical floor She was admitted with acute left lower quadrant pain and CT evidence as an outp atient with sigmoid diverticulitis and possible perforation She has improved a lot since admission and the pain is improved Making bowel movement and does not have any abdominal distention Denies any fever no chills Review of Systems Review of Systems: All systems reviewed and are unremarkable except as noted below Physical Exam Physical Exam: Lying in bed without any acute distress Constitutional: well developed, well nourished, + ill appearing and + obese Eyes: PERRL, conjunctivae normal, anicteric sclerae ENMT: external ear and nose normal, oropharynx normal Respiratory: no respiratory distress Auscultation: lungs clear to auscultat ion bilaterally Cardiovascular: Rate/Rhythm: regular rate and regular rhythm; not tachycardic Heart Sounds: normal S1 and normal S2; no murmur Extremities: no edema Gastrointestinal (Abdomen): Inspection/Auscultation: normal bowel sounds; abdomen not distended Percussion/Palpation: + abdomen tender ( left lower quadrant, no guarding and no rigidity) Musculoskeletal: No acute arthritis involving any of the joint Neurologic: normal touch/pain/proprioception and moves all extremities; no focal motor deficits Psychiatric: A+Ox3, euthymic affect Lymphatic: no cervical or axillary lymphadenopathy Results & Data Results & Data Vital Signs (Past 12 Hours) Vital Signs Temp Pulse Pulse Resp BP Pulse Ox O2 Del Method 01/19/25 12:47 36.9 C 79 16 124/74 Room Air 01/19/25 07:38 36.7 C 82 16 110/76 98 Room Air Laboratory Results Short CBC 01/18/25 01/19/25 Range/Units 20:10 05:36 WBC 11.04 H 10.33 (4.8-10.8) K/ul Hgb 12.9 12.1 (12.0-16.0) g/dl Hct 39.8 36.9 L (37.0-47.0) % Plt Count 364 327 (130-400) K/uL BMP 01/18/25 01/19/25 20:10 05:36 Sodium 140 138 Potassium 4.0 4.0 Chloride 106 108 H Carbon Dioxide 26 24 BUN 17 12 Creatinine 0.67 0.57 L Glucose 87 91 Calcium 9.3 8.4 L Liver Function 01/18/25 Range/Units 20:10 Total Bilirubin 0.5 (0.2-1.0) mg/dl AST 9 L (13-39) U/L ALT 18 (7-52) U/L Alkaline Phosphatase 141 H (34-104) U/L Albumin 4.1 (3.4-5.0) gm/dl Urine 01/18/25 Range/Units 19:50 Urine Color Yellow Urine Appearance Cloudy A (Clear) Urine pH 5.5 (4.5-7.5) Ur Specific [place] 1.038 H (1.000-1.030) Urine Protein Trace H (Negative) Urine Glucose (UA) Negative (Negative) Medications Administered Current Inpatient Medications Acetaminophen (Acetaminophen 325 Mg Tab) 650 mg PO Q4H PRN PRN Reason: Pain or Fever Stop: 02/17/25 23:23 Last Admin: 01/19/25 11:15 Dose: 650 mg Al Hydrox/Mg Hydrox/Simethicone (Aluminum/Magnesium Susp 30 Ml Udc) 15 ml PO Q4H PRN PRN Reason: Dyspepsia Stop: 02/17/25 23:23 Hydromorphone HCl (Hydromorphone Inj 0.5 Mg/0.5 Ml Syr) 0.5 mg IV Q6H PRN PRN Reason: Pain Stop: 02/01/25 23:23 Piperacillin Sod/Tazobactam Sod (Zosyn) 4.5 gm in 100 mls @ 25 mls/hr IV Q8H [facility]; Protocol Stop: 01/29/25 01:59 Last Admin: 01/19/25 10:26 Dose: 25 mls/hr Melatonin (Melatonin 3 Mg Tab) 3 mg PO HS PRN PRN Reason: Sleep Stop: 02/17/25 23:23 Ondansetron HCl (Ondansetron Inj 2 Mg/Ml 2 Ml Vial) 4 mg IV Q6H PRN PRN Reason: Nausea Stop: 02/17/25 23:23
[2025-01-20 08:39] LABS: Basophils # (auto) 0.04 K/uL (0.00-0.20); Basophils % (auto) 0.5 %; Eosinophils # (auto) 0.14 K/uL (0.00-0.50); Eosinophils % (auto) 1.7 %; Hematocrit (blood only) 40.3 % (37.0-47.0); Hemoglobin 13.1 g/dl (12.0-16.0); Immature Granulocytes # (auto) 0.02 K/uL (0.01-0.20); Immature Granulocytes % (auto) 0.2 %; Lymphocytes # (auto) 1.97 K/uL (1.20-3.40); Lymphocytes % (auto) 23.8 %; Mean Corpuscular Hemoglobin 27.6 pg (25.0-34.0); Mean Corpuscular Hgb Conc 32.5 g/dL (32.0-36.0); Mean Platelet Volume 10.4 fL (9.4-12.4); Monocytes # (auto) 0.27 K/uL (0.11-0.59); Monocytes % (auto) 3.3 %; Neutrophils # (auto) 5.82 K/uL (1.40-6.50); Neutrophils % (auto) 70.5 %; Platelet Count 354 K/uL (130-400); RDW Coefficient of Variation 11.9 % (11.5-14.5); RDW Standard Deviation 37.2 fL (36.4-46.3); Red Blood Count 4.74 M/uL (4.20-5.40); White Blood Count 8.26 K/ul (4.8-10.8)
--- NOTE | 2025-01-20 09:35 | Surgery Progress Note ---
Date of Service January 20, 2025 Assessment & Plan (1) Diverticulitis large intestine: Plan: avss no leukocytosis Plan: no surgical intervention indicated as improving on abx outpatient colonoscopy scheduled for March continue IV abx, would recommend at least another day of IV abx with transition to oral abx for total of [address] scan findings once colon is evaluated would recommend out-patient follow-up with colorectal surgeon for consideration of resection continue medical management encourage ambulation full liquids later today Dr. Patton on for weekend Admission and Anticipated Discharge Date Admission Date: January 18, 2025 Subjective feeling better abdominal pain pressure in low central pelvic area, worse when feels like she has to pee no n,v no fevers or chills tolerating clears +flatus and BM yesterday Physical Exam Constitutional: WD/WN, vitals as above + obese, cooperative and comfortable; no acute distress and not ill appearing Gastrointestinal (Abdomen): Inspection/Auscultation: abdomen normal to inspection; abdomen not distended Percussion/Palpation: + abdomen tender (suprapubic, LLQ) and abdomen soft; no guarding, abdomen not rigid and abdomen not firm Skin: no rashes, warm and dry Psychiatric: Orientation: alert and oriented x 3 Results & Data Vital Signs (Past 12 Hours) Vital Signs Temp Pulse Resp BP Pulse Ox O2 Del Method 01/20/25 07:38 36.7 C 76 16 119/78 97 Room Air Laboratory Results 01/20/25 Range/Units 08:20 WBC 8.26 (4.8-10.8) K/ul RBC 4.74 (4.20-5.40) M/uL Hgb 13.1 (12.0-16.0) g/dl Hct 40.3 (37.0-47.0) % MCV 85.0 (80.0-100.0) fL MCH 27.6 (25.0-34.0) pg MCHC 32.5 (32.0-36.0) g/dL RDW Std Deviation 37.2 (36.4-46.3) fL RDW Coeff of Radha 11.9 (11.5-14.5) % Plt Count 354 (130-400) K/uL MPV 10.4 (9.4-12.4) fL Immature Gran % (Auto) 0.2 % Neut % (Auto) 70.5 % Lymph % (Auto) 23.8 % [place] % (Auto) 3.3 % Eos % (Auto) 1.7 % Baso % (Auto) 0.5 % Neut # (Auto) 5.82 (1.40-6.50) K/uL Lymph # (Auto) 1.97 (1.20-3.40) K/uL [place] # (Auto) 0.27 (0.11-0.59) K/uL Eos # (Auto) 0.14 (0.00-0.50) K/uL Baso # (Auto) 0.04 (0.00-0.20) K/uL Immature Gran # (Auto) 0.02 (0.01-0.20) K/uL
--- NOTE | 2025-01-20 13:08 | Hospitalist Progress Note ---
Date of Service January 20, 2025 Assessment & Plan (1) Diverticulitis large intestine: Plan: Patient admitted for abdominal pain, diverticulitis and failed outpatient therapy. CT scan yesterday as an outpatient showed rectosigmoid wall thickening with adjacent irregular 5 cm soft tissue attenuation and surrounding inflammatory changes and possible focus of free air. Continue IV Zosyn Continue IV fluids Appreciate surgery input and recommendation for conservative management Appreciate GI input and recommendation She has been feeling much better, left lower quadrant abdominal pain is better and no sign of guarding and rigidity No fever no chills and white count is elevated Will start clears orally and continue current care Much better today and started with them full liquid diet today If she feels much better she will have regular diet tomorrow and likely discharge tomorrow afternoon (2) Abdominal pain: Plan: Analgesia as needed (3) Perforated bowel: Plan: R/O perforation. CT scan yesterday as an outpatient showed rectosigmoid wall thickening with adjacent irregular 5 cm soft tissue attenuation and surrounding inflammatory changes and possible focus of free air. Doubt any perforation If observing Plan DVT prophylaxis SCDs for now and increase ambulation Pt is a full code Admission and Anticipated Discharge Date Admission Date: January 18, 2025 Subjective 01/19/2025 The patient was seen and examined in medical floor She was admitted with acute left lower quadrant pain and CT evidence as an outpatient with sigmoid diverticulitis and possible perforation She has improved a lot since admission and the pain is improved Making bowel movement and does not have any abdominal distention Denies any fever no chills 01/20/2025 The patient was seen and examined in medical floor She has been much better today Denies any abdominal pain and tolerating full liquid diet today Likely discharge tomorrow Review of Systems Review of Systems: All systems reviewed and are unremarkable except as noted below Physical Exam Physical Exam: Lying in bed without any acute distress Constitutional: well developed, well nourished, + ill appearing and + obese Eyes: PERRL, conjunctivae normal, anicteric sclerae ENMT: external ear and nose normal, oropharynx normal Respiratory: no respiratory distress Auscultation: lungs clear to auscultation bilaterally Cardiovascular: Rate/Rhythm: regular rate and regular rhythm; not tachycardic Heart Sounds: normal S1 and normal S2; no murmur Extremities: no edema Gastrointestinal (Abdomen): Inspection/Auscultation: normal bowel sounds; abdomen not distended Percussion/Palpation: + abdomen tender ( left lower quadrant, no guarding and no rigidity) Neurologic: normal touch/pain/proprioception and moves all extremities; no focal motor deficits Psychiatric: A+Ox3, euthymic affect Lymphatic: no cervical or axillary lymphadenopathy Results & Data Results & Data Vital Signs (Past 12 Hours) Vital Signs Temp Pulse Resp BP Pulse Ox O2 Del Method 01/20/25 07:38 36.7 C 76 16 119/78 97 Room Air Laboratory Results Short CBC 01/20/25 Range/Units 08:20 WBC 8.26 (4.8-10.8) K/ul Hgb 13.1 (12.0-16.0) g/dl Hct 40.3 (37.0-47.0) % Plt Count 354 (130-400) K/uL Medications Administered Current Inpatient Medications Acetaminophen (Acetaminophen 325 Mg Tab) 650 mg PO Q4H PRN PRN Reason: Pain or Fever Stop: 02/17/25 23:23 Last Admin: 01/19/25 20:37 Dose: 650 mg Al Hydrox/Mg Hydrox/Simethicone (Aluminum/Magnesium Susp 30 Ml Udc) 15 ml PO Q4H PRN PRN Reason: Dyspepsia Stop: 02/17/25 23:23 Hydromorphone HCl (Hydromorphone Inj 0.5 Mg/0.5 Ml Syr) 0.5 mg IV Q6H PRN PRN Reason: Pain Stop: 02/01/25 23:23 Piperacillin Sod/Tazobactam Sod (Zosyn) 4.5 gm in 100 mls @ 25 mls/hr IV Q8H [facility]; Protocol Stop: 01/29/25 01:59 Last Admin: 01/20/25 09:44 Dose: 25 mls/hr Melatonin (Melatonin 3 Mg Tab) 3 mg PO HS PRN PRN Reason: Sleep Stop: 02/17/25 23:23 Ondansetron HCl (Ondansetron Inj 2 Mg/Ml 2 Ml Vial) 4 mg IV Q6H PRN PRN Reason: Nausea Stop: 02/17/25 23:23
[2025-01-20 16:38] VITALS: RESP 18
[2025-01-21 07:13] VITALS: TEMP 98.2; O2SAT 91
--- NOTE | 2025-01-21 09:45 | Surgery Progress Note ---
Date of Service January 21, 2025 Assessment & Plan (1) Abdominal pain, left lower quadrant: Plan: She tolerated full liquid diet, advance to low fiber If she tolerates this she can be discharged later today Would give her 2 weeks of oral antibiotics She will still need her colonoscopy 6 to 8 weeks from now Surgical sign off at this time, please call with any questions or concerns Admission and Anticipated Discharge Date Admission Date: January 18, 2025 Subjective Patient seen and examined. Feels much better with very little abdominal pain. She is tolerated full liquid diet. Afebrile. She is having bowel movements. Review of Systems Constitutional: + fever; no chills Eyes: no blind spots and no corrective lenses Ear, Nose, Mouth, Throat: no ear pain and no hearing loss Respiratory: no cough and no dyspnea Cardiovascular: no chest pain and no dyspnea on exertion Gastrointestinal: + abdominal pain; no nausea and no vomit ing Genitourinary: no dysuria and no urinary urgency Musculoskeletal: no back pain and no neck pain Integumentary: no acne and no changing lesions Psychiatric: no behavioral changes and no depression Physical Exam Constitutional: WD/WN, vitals as above Eyes: PERRL, conjunctivae normal, anicteric sclerae ENMT: external ear and nose normal, oropharynx normal Respiratory: normal respiratory effort, lungs clear to auscultation Cardiovascular: RRR, no murmur, no edema Gastrointestinal (Abdomen): Inspection/Auscultation: abdomen normal to inspection; abdomen not distended Percussion/Palpation: abdomen soft; abdomen nontender and no guarding Musculoskeletal: no cyanosis or clubbing, extremities motor strength 5/5 Skin: no rashes, warm and dry Neurologic: PERRL, EOMI, accommodation nl, no face palsy, no dysarthria Psychiatric: A+Ox3, euthymic affect Results & Data Vital Signs (Past 12 Hours) Vital Signs Temp Pulse Resp BP Pulse Ox O2 Del Method 01/21/25 07:12 36.8 C 83 18 127/85 91 Room Air PG Care Time/CCT Total # of Minutes Spent Total Time Spent with Patient: Total time spent is greater than 50% in coordination of care (as documented) at patient's floor/unit and/or counseling patient: Coding Level of Care Code 47979 SUB INP/OBS CARE 08/27MIN Diagnoses Abdominal pain, left lower quadrant R10.32
--- NOTE | 2025-01-21 11:29 | Hospitalist Progress Note ---
Date of Service January 21, 2025 Assessment & Plan (1) Diverticulitis large intestine: Plan: Patient admitted for abdominal pain, diverticulitis and failed outpatient therapy. CT scan yesterday as an outpatient showed rectosigmoid wall thickening with adjacent irregular 5 cm soft tissue attenuation and surrounding inflammatory changes and possible focus of free air. Continue IV Zosyn Continue IV fluids Appreciate surgery input and recommendation for conservative management Appreciate GI input and recommendation She has been feeling much better, left lower quadrant abdominal pain is better and no sign of guarding and rigidity No fever no chills and white count is elevated Will start clears orally and continue current care Much better today and started with them full liquid diet today If she feels much better she will have regular diet tomorrow and likely discharge tomorrow afternoon She has been feeling much better and the abdominal pain is almost gone Denies any more symptoms and has been ambulating in the hallway and tolerating regular diet She will be discharged home this afternoon (2) Abdominal pain: Plan: Analgesia as needed (3) Perforated bowel: Plan: R/O perforation. CT scan yesterday as an outpatient showed rectosigmoid wall thickening with adjacent irregular 5 cm soft tissue attenuation and surrounding inflammatory changes and possible focus of free air. Doubt any perforation If observing Plan DVT prophylaxis SCDs for now and increase ambulation Pt is a full code Admission and Anticipated Discharge Date Admission Date: January 18, 2025 Subjective 01/19/2025 The patient was seen and examined in medical floor She was admitted with acute left lower quadrant pain and CT evidence as an outpatient with sigmoid diverticulitis and possible perforation She has improved a lot since admission and the pain is improved Making bowel movement and does not have any abdominal distention Denies any fever no chills 01/20/2025 The patient was seen and examined in medical floor She has been much better today Denies any abdominal pain and tolerating full liquid diet today Likely discharge tomorrow 01/21/2025 The patient was seen and examined in medical floor She has been much better and denies any pain in the abdomen Tolerating low fiber diet and has been having bowel movement She will be given oral antibiotic to finish the course and will be sent home Review of Systems Review of Systems: All systems reviewed and are unremarkable except as noted below Physical Exam Physical Exam: Lying in bed without any acute distress Constitutional: well developed, well nourished, + ill appearing and + obese Eyes: PERRL, conjunctivae normal, anicteric sclerae ENMT: external ear and nose normal, oropharynx normal Respiratory: no respiratory distress Auscultation: lungs clear to auscultation bilaterally Cardiovascular: Rate/Rhythm: regular rate and regular rhythm; not tachycardic Heart Sounds: normal S1 and normal S2; no murmur Extremities: no edema Gastrointestinal (Abdomen): Inspection/Auscultation: normal bowel sounds; abdomen not distended Percussion/Palpation: abdomen nontender ( left lower quadrant, no guarding and no rigidity) Musculoskeletal: No acute arthritis involving any of the joint Neurologic: normal touch/pain/proprioception and moves all extremities; no focal motor deficits Psychiatric: A+Ox3, euthymic affect Lymphatic: no cervical or axillary lymphadenopathy Results & Data Results & Data Vital Signs (Past 12 Hours) Vital Signs Temp Pulse Resp BP Pulse Ox O2 Del Method 01/21/25 07:12 36.8 C 83 18 127/85 91 Room Air Medications Administered Current Inpatient Medications Acetaminophen (Acetaminophen 325 Mg Tab) 650 mg PO Q4H PRN PRN Reason: Pain or Fever Stop: 02/17/25 23:23 Last Admin: 01/20/25 21:10 Dose: 650 mg Al Hydrox/Mg Hydrox/Simethicone (Aluminum/Magnesium Susp 30 Ml Udc) 15 ml PO Q4H PRN PRN Reason: Dyspepsia Stop: 02/17/25 23:23 Ciprofloxacin (Ciprofloxacin 250 Mg Tab) 750 mg PO Q12H [facility]; Protocol Stop: 01/31/25 11:29 Hydromorphone HCl (Hydromorphone Inj 0.5 Mg/0.5 Ml Syr) 0.5 mg IV Q6H PRN PRN Reason: Pain Stop: 02/01/25 23:23 Melatonin (Melatonin 3 Mg Tab) 3 mg PO HS PRN PRN Reason: Sleep Stop: 02/17/25 23:23 Metronidazole (Metronidazole 500 Mg Tab) 500 mg PO TID [facility]; Protocol Stop: 01/31/25 13:59
[2025-01-21] MEDS: CIPROFLOXACIN 250 MG TAB PO SCH (12:38)
[2025-01-21] MEDS: metroNIDAZOLE 500 MG TAB PO SCH (14:33)
[2025-01-21 14:43] VITALS: BP 132/83; PULSE 96
--- NOTE | 2025-01-22 09:04 | Discharge Summary ---
Date of Service January 22, 2025 Admission HPI Per Admitting Provider Trinidad Suresh is a 34 y/o F who presents with worsening abdominal pain and diverticulitis. She has had abdominal pain in the left lower quadrant for about 2 weeks. She called her primary care provider who started her on Augmentin 4 days ago. She that she was still having persistent pain despite the antibiotic and her PCP ordered a CT abdomen/pelvis with IV and oral contrast which was obtained yesterday. Patient reports she was called by her PCP today to present to the emergency department due to potential walled off bowel perforation versus inflammatory bowel disease versus mass with fistula. Patient denies nausea. Reports she is not really having much in terms of bowel movements. Reports that when she does have a bowel movement it is very small and abnormal. Denies any fevers or chills. Denies any chest pain or shortness of breath. Denies any history of IBS or Crohn's. She reports she has not had prior surgery on her abdomen. In the ED the patient was started on IV Zosyn. She was given IV fluids and surgery was consulted. WBC is mildly elevated at 11.04 otherwise her labs look unremarkable Admission Exam Per Admitting Provider Physical Exam: General- adult Head- atraumatic Eyes- PERRL, EOMI, anicteric ENT- oropharynx clear Neck- supple, no JVD, no adenopathy, no thyromegaly; carotids +2/2, no bruits appreciated Lungs- clear to auscultation and percussion Heart- regular rhythm; no murmur, no gallop, no rub appreciated Abdomen- normal bowel sounds, soft, nontender, no masses or hepatosplenomegaly Extremities- no pretibial edema, no calf tenderness; peripheral pulses intact Neuro- alert, oriented x 3; PERRL, EOMI; no facial palsy; no dysarthria; motor 5/5 bilaterally; no cogwheel rigidity; patellar DTRs +2/2; toes downgoing bilaterally; finger to nose intact bilaterally Skin- warm & dry Principal Diagnosis Acute diverticulitis of the rectosigmoid junction Discharge Exam Lying in bed without any acute distress Constitutional well developed, well nourished, + ill appearing and + obese Eyes PERRL, conjunctivae normal, anicteric sclerae ENMT external ear and nose normal, oropharynx normal Respiratory no respiratory distress Auscultation: lungs clear to auscultation bilaterally Cardiovascular Rate/Rhythm: regular rate and regular rhythm; not tachycardic Heart Sounds: normal S1 and normal S2; no murmur Extremities: no edema Gastrointestinal (Abdomen) Inspection/Auscultation: normal bowel sounds; abdomen not distended Percussion/Palpation: abdomen nontender ( left lower quadrant, no guarding and no rigidity) Neurologic normal touch/pain/proprioception and moves all extremities; no focal motor deficits Psychiatric A+Ox3, euthymic affect Lymphatic no cervical or axillary lymphadenopathy Discharge Data Allergies Allergy/AdvReac Type Severity Reaction Status Date / Time No Known Allergies Allergy Verified 01/19/25 11:44 Consultations 01/18/25 21:31 Consult General Surgery Routine ED Decision to Admit Stat 01/18/25 23:24 Consult Gastroenterology Routine Consult General Surgery Routine Hospital Course (1) Diverticulitis large intestine: Patient admitted for abdominal pain, diverticulitis and failed outpatient therapy. CT scan yesterday as an outpatient showed rectosigmoid wall thickening with adjacent irregular 5 cm soft tissue attenuation and surrounding inflammatory changes and possible focus of free air. Continue IV Zosyn Continue IV fluids Appreciate surgery input and recommendation for conservative management Appreciate GI input and recommendation She has been feeling much better, left lower quadrant abdominal pain is better and no sign of guarding and rigidity No fever no chills and white count is elevated Will start clears orally and continue current care Much better today and started with them full liquid diet today If she feels much better she will have regular diet tomorrow and likely discharge tomorrow afternoon She has been feeling much better and the abdominal pain is almost gone Denies any more symptoms and has been ambulating in the hallway and tolerating regular diet She will be discharged home this afternoon (2) Abdominal pain: Analgesia as needed (3) Perforated bowel: R/O perforation. CT scan yesterday as an outpatient showed rectosigmoid wall thickening with adjacent irregular 5 cm soft tissue attenuation and surrounding inflammatory changes and possible focus of free air. Doubt any perforation If observing Plan DVT prophylaxis SCDs for now and increase ambulation Pt is a full code Total Time Total Time Spent Total Time Spent (In Minutes): 35 Minutes Discharge Plan Discharge Items Patient Disposition: Home - Self-Care Reason For Visit: FAILED OUTPT TX FOR DIVERTICULITIS WITH PERFORATIO Discharge Diagnosis: Acute diverticulitis of the rectosigmoid junction Condition on Discharge: Good Activity: Resume your previous activity Non-emergency contact: Primary Care Provider Call non-emergency contact if: you have any medication questions and your symptoms worsen Follow-up/Referrals: Viviana Del Rio DO [Primary Care Provider] - (Date & Time 01/27/2025 2:00 PM Provider: Viviana Del Rio DO [facility]) Diet: Low Fiber Addtl Attending Provider Instructions: Continue antibiotic as advised Try [id number] probiotics of your choice as long as you are on antibiotic You will need to have a colonoscopy arranged through your PCP within 6 to 8 weeks Please keep appointment with your healthcare provider Pending Studies at Discharge: No Stand-Alone Forms: My [facility] [employer], Smoking Cessation Medications and DC Order Prescriptions: New metronidazole 500 mg Tablet 500 mg PO TID Qty: 33 0RF ciprofloxacin HCl 250 mg Tablet 750 mg PO Q12H Qty: 22 0RF Discharge Orders: Discharge Order (Routine); Ordered 01/21/25 Ordered By: Beatrice Trevino/Other Patient Handouts: Diverticulitis Dc Admission Data Admit Date/Time: 01/18/25 22:00 Attending Provider: Beatrice Gonsales Admit Provider: Aron Burgos Primary Care Provider: Viviana Del Rio Other Providers: Alden Estes; Aron Burgos; Alecia Hall; Landry Alfonso; Randee Huitron; Esperanza Beckham; Joselyn Correia; Mabel Hopper; Manuel Ontiveros; Bijan Chowdhury; Comfort Murillo; Marycarmen Parker S; Cassie Wang; Roma Dai; Paradise Lam; Keria Harrison; Isaías Walsh; Steve Garcia; Neeraj Garcia; Niki Ochoa; Regina Diamond Jr; Livan Street; Jea-nPierre Yung; Robin Coker; Hari Florez; Elin Joya; Sharif Jackson I; Bess Michael; Andres Coker; Javi Wilson; Alden Vo; Shashank Michael; Raciel Pavon; Jasmin Chowduhry; Morgan Godfrey; Zaira Singletary; Randee Butler; Akash Rabago Jr; Shelby Guevara; Vinny Bustamante; Keira Elise Other Interventions: Discharge Summary Assessment (RN) Last Done: 01/21/25 14:40
--- NOTE | 2025-01-24 13:42 | Electrocardiogram Report ---
Test Reason : Blood Pressure : */* mmHG Vent. Rate : 85 BPM Atrial Rate : 85 BPM P-R Int : 140 ms QRS Dur : 72 ms QT Int : 346 ms P-R-T Axes : 20 10 20 degrees QTcB Int : 411 ms Normal sinus rhythm Normal ECG No previous ECGs available Confirmed by Gen Mantilla ([id number]) on 01/24/2025 1:42:26 PM Referred By: REFERRED SELF Confirmed By: Gen Mantilla
== END 2025-01-21 15:00 | disposition home or self-care (01) | DRG 392 ==
LOC: ED 19:28 → 3W 22:00 → SUATTDRO 22:00 → 3W 22:50

== ENCOUNTER 2025-02-06 15:45 | Inpatient (IN) ==
[2025-02-06] MEDS: SODIUM CHLORIDE 0.9% 1,000 ML IV STA (16:15)
[2025-02-06 16:31] LABS: Pregnancy Test, Serum Negative (Negative)
[2025-02-06 16:33] LABS: Alanine Aminotransferase 20.0 U/L (7-52); Albumin Globulin Ratio 1.2 (0.9-2); Alkaline Phosphatase 88.0 U/L (34-104); Anion Gap 8.0 (3-11); Bilirubin,Total 1.0 mg/dl (0.2-1.0); Blood Urea Nitrogen 8.0 mg/dl (6-23); Calcium 8.9 mg/dl (8.6-10.3); Carbon Dioxide 23.0 mmol/L (21-32); Chloride 106.0 mmol/L (98-107); Creatinine Clr Calc Pharmacy 169.0 ml/min; Globulin 3.3 gm/dl (2.5-4.0); Glucose 87.0 mg/dl (70-99(Fasting)); Lipase 12.0 U/L (11-82); Potassium 3.6 mmol/L (3.5-5.1); Sodium 137.0 mmol/L (136-145); Total Protein 7.4 gm/dl (6.0-8.3)
--- NOTE | 2025-02-06 16:37 | Emergency Department Note ---
Impression & Plan Hypotension, Lower abdominal pain, Diverticular disease, Leukocytosis, Fever, Failure of outpatient treatment ED Provider Note NAME: IRON FERRER AGE: 34 SEX: F : 1990 ARRIVES VIA: Walk-In INFORMANT: [Patient] ED PROVIDER(S): [Karthik Bah MD] CHIEF COMPLAINT: GI assessment HISTORY OF PRESENT ILLNESS: Patient is a 34-year-old female who in mid January, last month, was admitted for diverticulitis. The patient was discharged on Cipro and Flagyl. She states that she began having recurrent symptoms and then a week ago, her doctor's office put her on Augmentin outpatient. She presented to the office today and was found to have a fever and was still having trouble and was referred to the ER. The patient states that she has some bilateral lower abdominal pain that is somewhat crampy. Having a bowel movement makes the pain worse. She has been a bit dizzy and she thinks today was the first day she had a fever. No urinary complaints, no cough or cold or congestion. She has not had previous abdominal surgery for diverticulitis. At the doctor's office, given her circumstances and ongoing complaints, she was referred to the ER. PMHx/PSHx/Social Hx: See Below PHYSICAL EXAM: GENERAL: Patient is in no acute distress. HEENT: No acute trauma, normocephalic atraumatic, mucous membranes moist, no nasal congestion. NECK: No stridor, no adenopathy, no meningismus, trachea is midline. LUNGS: Clear to auscultation bilaterally, no wheeze, no rhonchi, breath sounds equal. HEART: Tachycardic, subtle systolic murmur, regular rhythm. ABDOMEN: Soft, mildly tender in the lower abdomen bilaterally, no distention. EXTREMITIES: No cyanosis, full range of motion of all the joints without pain or difficulty. NEUROLOGIC: Oriented x 3, no acute motor or sensory deficits, no focal weakness. SKIN: No jaundice, no diaphoresis. DIFFERENTIAL DIAGNOSIS: Diverticulitis, abscess, colitis, UTI, bacteremia or sepsis, dehydration, among others. EMERGENCY DEPARTMENT PROCEDURES: MEDICAL DECISION MAKING: There is a mild leukocytosis, this would be consistent with infection. A subtle anemia was seen. There was a normal platelet count. No bandemia. No renal failure or significant electrolyte abnormality. No concerning liver enzyme elevation. Lactic acid level was not elevated making sepsis less likely. testing was negative. No evidence for pancreatitis by our testing. Urinalysis did not show findings of infection. Abdominal and pelvis CT shows diverticulitis without abscess or perforation. On exam, the patient was initially hypotensive. She was febrile. She was mildly tender in the lower abdomen bilaterally. The patient received IV saline, 1 L. Her blood pressure improved with the saline. She received IV Unasyn as antibiotic coverage. She was given IV Tylenol. Patient presents hypotensive, febrile. She has failed outpatient therapy for diverticulitis. I do think she requires a hospital stay. I spoke with the patient and case management, the on-call hospitalist was consulted. Prior/Outside records/notes reviewed: Discharge summary note from 01/22/2025 describing her presentation, hospital course and plan at discharge. Imaging/x-ray results per my interpretation: Chronic Medical/Social conditions affecting care: Recent hospitalization for diverticulitis. Care/Management discussed with: Case management, the on-call hospitalist. Level of care consideration(s): After review of the information above and other included data: --I believe the patient requires escalation of care to admission DISPOSITION: Admission Past Med/Surg History Problem List (Updated 02/07/25 @ 00:10 by Karthik Bah MD) Failure of outpatient treatment (Acute) Fever (Acute) Leukocytosis (Acute) Diverticular disease (Acute) Lower abdominal pain (Acute) Hypotension (Acute) Abdominal pain, left lower quadrant (Acute) Perforated bowel (Acute) Abdominal pain Diverticulitis large intestine Medical History Anxiety and depression Surgical History (Updated 02/06/25 @ 18:56 by Cathy Hill PA-C) Status post tonsillectomy and adenoidectomy Family History (Updated 02/06/25 @ 18:55 by Cathy Hill PA-C) Mother Diabetes Hypertension Sister Diabetes Grandfather (Maternal) Diabetes Hypertension Social History Smoking Status: Never smoker Hx Alcohol Use: No Hx Substance Use: No Preferred Language: Citizen Of [place] Communication Ability: Effective Telephone Information Supervisor Required: No Beliefs That Will Affect Care: None Current Living Situation: Family Feels Safe at Home: Yes Assistive Devices: None Allergies Allergies Allergy/AdvReac Type Severity Reaction Status Date / Time No Known Allergies Allergy Verified 01/19/25 11:44 Home Meds Home Medications Medication Instructions Recorded Confirmed acetaminophen 500 mg tablet 1,000 mg PO Q6H PRN Pain 02/06/25 02/06/25 amoxicillin 875 mg-potassium 1 tab PO BID 02/06/25 02/06/25 clavulanate 125 mg tablet Results & Data (ED) Vital Signs Vital Signs - 24 hr 02/06/25 15:48 02/06/25 16:05 02/06/25 16:09 Temperature 37.7 C H Temperature Source Oral Pulse Rate 124 H 115 H Pulse Rate [Right Finger] Respiratory Rate 20 Respiratory Effort / Characteristics Non-Labored Spontaneous Respiratory Depth Normal Respiratory Pattern Blood Pressure 88/54 L Blood Pressure [Right Arm] Blood Pressure Mean 65 Blood Pressure Mean [Right Arm] Pulse Oximetry 97 Oxygen Delivery Method Room Air Room Air Sepsis Recent Fever Within 48 Hours No Sepsis New/Unexplained Change in Mental Status No Sepsis Action Taken by Nursing No Action Required 02/06/25 16:12 02/06/25 16:55 Temperature Temperature Source Pulse Rate Pulse Rate [Right Finger] 116 H 110 H Respiratory Rate 16 16 Respiratory Effort / Characteristics Non-Labored Spontaneous Non-Labored Spontaneous Respiratory Depth Normal Normal Respiratory Pattern Regular Regular Blood Pressure Blood Pressure [Right Arm] 131/95 126/71 Blood Pressure Mean Blood Pressure Mean [Right Arm] 107 89 Pulse Oximetry 97 99 Oxygen Delivery Method Room Air Room Air Sepsis Recent Fever Within 48 Hours Sepsis New/Unexplained Change in Mental Status Sepsis Action Taken by Half-Way Medications Current Medication List: was personally reviewed by me Laboratory Data Attestation: I reviewed the patient's lab results. 02/06/25 16:55 02/06/25 15:58 Lab Results 02/06/25 02/06/25 02/06/25 Range/Units 15:58 16:37 16:55 WBC 11.72 H (4.8-10.8) K/ul RBC 4.06 L (4.20-5.40) M/uL Hgb 11.1 L (12.0-16.0) g/dl Hct 34.3 L (37.0-47.0) % MCV 84.5 (80.0-100.0) fL MCH 27.3 (25.0-34.0) pg MCHC 32.4 (32.0-36.0) g/dL RDW Std Deviation 37.7 (36.4-46.3) fL RDW Coeff of Radha 12.5 (11.5-14.5) % Plt Count 271 (130-400) K/uL MPV 10.9 (9.4-12.4) fL Immature Gran % (Auto) 0.3 % Neut % (Auto) 82.7 % Lymph % (Auto) 10.3 % [place] % (Auto) 6.3 % Eos % (Auto) 0.1 % Baso % (Auto) 0.3 % Neut # (Auto) 9.69 H (1.40-6.50) K/uL Lymph # (Auto) 1.21 (1.20-3.40) K/uL [place] # (Auto) 0.74 H (0.11-0.59) K/uL Eos # (Auto) 0.01 (0.00-0.50) K/uL Baso # (Auto) 0.03 (0.00-0.20) K/uL Immature Gran # (Auto) 0.04 (0.01-0.20) K/uL Sodium 137 (136-145) mmol/L Potassium 3.6 (3.5-5.1) mmol/L Chloride 106 (98-107) mmol/L Carbon Dioxide 23 (21-32) mmol/L Anion Gap 8 (3-11) BUN 8 (6-23) mg/dl Creatinine 0.52 L (0.6-1.2) mg/dl Est Cr Clr Drug Dosing 169.0 ml/min eGFR 124.95 BUN/Creatinine Ratio 15.4 (10-20) Glucose 87 (70-99(Fasting)) mg/dl Lactate 0.7 (0.4-2.0) mmol/L Calcium 8.9 (8.6-10.3) mg/dl Total Bilirubin 1.0 (0.2-1.0) mg/dl AST 13 (13-39) U/L ALT 20 (7-52) U/L Alkaline Phosphatase 88 (34-104) U/L Total Protein 7.4 (6.0-8.3) gm/dl Albumin 4.1 (3.4-5.0) gm/dl Globulin 3.3 (2.5-4.0) gm/dl Albumin/Globulin Ratio 1.2 (0.9-2) Lipase 12 (11-82) U/L HCG, Qual Negative (Negative) Urine Color Yellow Urine Appearance Clear (Clear) Urine pH 7.0 (4.5-7.5) Ur Specific [place] 1.008 (1.000-1.030) Urine Protein Negative (Negative) Urine Glucose (UA) Negative (Negative) Urine Ketones Trace H (Negative) Urine Blood Trace H (Negative) Urine Nitrite Negative (Negative) Urine Bilirubin Negative (Negative) Urine Urobilinogen Negative (Negative) Ur Leukocyte Esterase Negative (Negative) Urine WBC (Auto) 0-5 (0-5) /hpf Urine RBC (Auto) 0-2 (0-2) /hpf U Hyaline Cast (Auto) 0-2 (0-2) /lpf U Epithel Cells (Auto) 0-2 (0-2) /hpf Urine Bacteria (Auto) None Seen (None Seen) Urine Comment Administered Medications Acetaminophen (Acetaminophen 325 Mg Tab) 650 mg PO Q4H PRN PRN Reason: Pain or Fever Stop: 03/08/25 19:57 Last Admin: 02/06/25 21:14 Dose: 650 mg Documented By: EUGENIO Sodium Chloride (Nss) 1,000 mls @ 125 mls/hr IV .Q8H [facility] Stop: 02/07/25 11:59 Last Admin: 02/06/25 21:09 Dose: 125 mls/hr Documented By: EUGENIO Discontinued Medications Sodium Chloride (Nss) 1,000 mls @ 999 mls/hr IV .Q1H1M STA Stop: 02/06/25 17:04 Last Infusion: 02/06/25 17:16 Dose: Infused Documented By: Admin: 02/06/25 16:15 Dose: 999 mls/hr Documented By: ELIGIO Acetaminophen (Ofirmev) 1,000 mg in 100 mls @ 400 mls/hr IV NOW STA Stop: 02/06/25 16:41 Last Infusion: 02/06/25 16:56 Dose: Infused Documented By: Admin: 02/06/25 16:41 Dose: 400 mls/hr Documented By: ELIGIO Ampicillin Sodium/Sulbactam Sodium (Unasyn) 3,000 mg in 100 mls @ 200 mls/hr IV NOW STA Stop: 02/06/25 17:57 Last Infusion: 02/06/25 19:00 Dose: Infused Documented By: Admin: 02/06/25 18:30 Dose: 200 mls/hr Documented By: ELIGIO Sodium Chloride (Nss) 1,000 mls @ 999 mls/hr IV .Q1H1M ONE Stop: 02/06/25 19:37 Last Infusion: 02/06/25 21:08 Dose: Infused Documented By: Admin: 02/06/25 19:12 Dose: 999 mls/hr Documented By: CAROLE Piperacillin Sod/Tazobactam Sod (Zosyn) 4.5 gm in 100 mls @ 200 mls/hr IV NOW ONE; Protocol Stop: 02/06/25 20:29 Last Infusion: 02/06/25 20:46 Dose: Infused Documented By: Admin: 02/06/25 20:16 Dose: 200 mls/hr Documented By: BENOIT Ioversol (Optiray 320 100ml) 93 ml IV ONCE ONE Stop: 02/06/25 16:50 Last Admin: 02/06/25 16:49 Dose: 93 ml Documented By: ADWOA Imaging Data Radiologist's Impression: Abdomen/Pelvis CT 02/06/25 16:04 EXAMINATION: CT of the abdomen and pelvis performed after the administration of IV contrast TECHNIQUE: Helical CT images from the lung bases through the symphysis pubis were obtained with contrast. Coronal and sagittal reformatted images were generated at a workstation for further assessment. Dose reduction techniques were achieved by using automatic exposure control and/or adjustment of mA and/or kV according to patient size and/or use of iterative reconstruction technique. COMPARISON: February 14, 2024 HISTORY: Abdominal pain FINDINGS: The lung bases are clear. No pneumoperitoneum. No pneumatosis. There is a left L5 pars defect noted. No acute fractures. The liver, gallbladder, pancreas, spleen, and adrenal glands are unremarkable. The main portal vein is patent. Normal caliber abdominal aorta. No retroperitoneal or pelvic lymphadenopathy. 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 No hydronephrosis. The bladder is unremarkable. An intrauterine device appears in good position. There is focal thickening and pericolonic fat stranding at the mid sigmoid colon consistent with an acute diverticulitis. No perforation or abscess identified. No evidence for bowel obstruction. Normal appendix. IMPRESSION: 1. Acute sigmoid diverticulitis. No perforation or abscess Electronically signed by Stanley Mathew 02-06-2025 5:05 PM Discharge Plan Visit Data Chief Complaint: GI Assessment Stated Complaint: DIVERTICULITIS, ABD PAIN ED Provider: Karthik Bah Discharge Problem: Hypotension, Lower abdominal pain, Diverticular disease, Leukocytosis, Fever, Failure of outpatient treatment Patient Disposition: Admitted As Inpatient Condition: Fair Discharge Instructions Interventions: ED Discharge Assessment Last Done: 02/06/25 19:45 Discharge Problem: Hypotension Qualifiers: Hypotension type: unspecified hypotension type Qualified Code(s): I95.9 - Hypotension, unspecified Leukocytosis Qualifiers: Leukocytosis type: unspecified Qualified Code(s): D72.829 - Elevated white blood cell count, unspecified Fever Qualifiers: Fever type: unspecified Qualified Code(s): R50.9 - Fever, unspecified
[2025-02-06] MEDS: ACETAMINOPHEN 1,000 MG/100 ML VIAL IV STA (16:41)
[2025-02-06] MEDS: OPTIRAY 320 100ml IV ONE (16:49)
[2025-02-06 16:58] LABS: Appearance Urine Clear (Clear); Bacteria Urine Automated None Seen (None Seen); Cast Urine Automated 0-2 /lpf (0-2); Epithelial Cell Urine Auto 0-2 /hpf (0-2); Glucose Urine UA Negative (Negative); RBC Urine Automated 0-2 /hpf (0-2); WBC Urine Automated 0-5 /hpf (0-5)
--- NOTE | 2025-02-06 17:05 | CT Scan Report ---
EXAMINATION: CT of the abdomen and pelvis performed after the administration of IV contrast TECHNIQUE: Helical CT images from the lung bases through the symphysis pubis were obtained with contrast. Coronal and sagittal reformatted images were generated at a workstation for further assessment. Dose reduction techniques were achieved by using automatic exposure control and/or adjustment of mA and/or kV according to patient size and/or use of iterative reconstruction technique. COMPARISON: February 14, 2024 HISTORY: Abdominal pain FINDINGS: The lung bases are clear. No pneumoperitoneum. No pneumatosis. There is a left L5 pars defect noted. No acute fractures. The liver, gallbladder, pancreas, spleen, and adrenal glands are unremarkable. The main portal vein is patent. Normal caliber abdominal aorta. No retroperitoneal or pelvic lymphadenopathy. 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 No hydronephrosis. The bladder is unremarkable. An intrauterine device appears in good position. There is focal thickening and pericolonic fat stranding at the mid sigmoid colon consistent with an acute diverticulitis. No perforation or abscess identified. No evidence for bowel obstruction. Normal appendix. IMPRESSION: 1. Acute sigmoid diverticulitis. No perforation or abscess Electronically signed by Stanley Mathew 02-06-2025 5:05 PM
[2025-02-06 17:08] LABS: Hematocrit (blood only) 34.3 % (37.0-47.0); Hemoglobin 11.1 g/dl (12.0-16.0); Immature Granulocytes # (auto) 0.04 K/uL (0.01-0.20); Immature Granulocytes % (auto) 0.3 %; Mean Corpuscular Hemoglobin 27.3 pg (25.0-34.0); Mean Corpuscular Volume 84.5 fL (80.0-100.0); Platelet Count 271 K/uL (130-400); RDW Standard Deviation 37.7 fL (36.4-46.3); Red Blood Count 4.06 M/uL (4.20-5.40); White Blood Count 11.72 K/ul (4.8-10.8)
--- NOTE | 2025-02-06 18:08 | History & Physical Report ---
Date of Service February 06, 2025 Assessment & Plan (1) Diverticulitis large intestine: (2) Abdominal pain: Plan: Patient is a 34-year-old female with PMH recurrent diverticulitis, depression presented to ER with complaint of recurrent abdominal pain x 1 week, worsened over past 2 days. Recent hospital admission 01/18/2025-01/22/2025 for diverticulitis and was treated with IV Zosyn with improvement of symptoms in hospital. Was discharged on Cipro and Flagyl, however only 4 day course of Cipro and 11 day course of Flagyl. (possible rx error). PCP gave Augmentin which finished today. Fever today. In ER T: 37.7C, P: 124, R: 20, BP 88/54, 97% on room air In ER given 1L NSS, Unasyn, IV Tylenol WBC: 11.[address] abd/pelvis: There is focal thickening and pericolonic fat stranding at the mid sigmoid colon consistent with an acute diverticulitis. No perforation or abscess identified. No evidence for bowel obstruction Patient reassessed at 18:30. P: 93, BP: 113/66, R: 24, 99% on RA. Lungs clear to auscultation Suspect unresolved diverticulitis IVF Zosyn NPO CBC, BMP in am Is scheduled for outpatient colonoscopy 03/06/25 with [facility] #Microscopic hematuria Trace blood noted on UA today. Was also noted on 01/18/25 UA, however pt was menstruating at time Will need further outpatient follow up #Depression, Anxiety Not currently on treatment DVT Prophylaxis SCDs Admit med tele Full Code as per discussion with pt Follows with Dr Crockett at [facility] for routine care Pt was seen and care coordinated with Dr Gonsales. See addendum I spent a total of 65 minutes reviewing notes, outpatient records, labs, medication, coordinating, documenting and providing care for this patient excluding time spent in the performance of separately billed services and excluding time spent by another provider/QHP. History of Present Illness Chief Complaint: abdominal pain Primary Care Provider: Aron Crockett MD Patient is a 34-year-old female with PMH recurrent diverticulitis, depression presented to ER with complaint of abdominal pain. Per inpatient chart review recent hospital admission 01/18/2025-01/22/2025 for diverticulitis with concern for possible perforation on CT scan and was treated with IV Zosyn with improvement of symptoms in hospital. During that admission GI and general surgery was consulted and conservative measures were advised with colonoscopy in 6/8 weeks and was discharged on Cipro and Flagyl. Patient finished 4 day course of Cipro and 11 day course of Flagyl. States followed with PCP (ERICA) and given course of Augmentin which she finished today. She states last week started with some lower abdominal discomfort again. She states she did eat more over the weekend with the holiday. Past two days with increased discomfort across lower abdomen and worse with having BM. States past 2 days with soft BMs but gets sharp pain to left lower abdomen and has immediate soft BM. She states LMP about one month ago. Today seen by PCP and noted to have fever and referred to hospital for further evaluation. Denies diaphoresis, N/V, melena, hematochezia, SHERMAN, dizziness, syncope, CP, SOB, palpitations, cough, sore throat, rhinorrhea, weakness, extremity edema, rashes, urinary symptoms. She reports is scheduled for colonoscopy in March 2025. Outpatient 01/17/25 CT Abd/pelvis: Rectosigmoid wall thickening with adjacent irregular 5.0 cm soft tissue attenuation and surrounding inflammatory changes and possible focus of free air. Differentials include rectosigmoid colitis with contained perforation, inflammatory bowel disease of the rectosigmoid with developing fistula versus malignancy. Colonoscopy is recommended following treatment. Allergies Allergy/AdvReac Type Severity Reaction Status Date / Time No Known Allergies Allergy Verified 01/19/25 11:44 Home Medications Medication Instructions Recorded Confirmed Type acetaminophen 500 mg tablet 1,000 mg PO Q6H PRN Pain 02/06/25 02/06/25 History amoxicillin 875 mg-potassium 1 tab PO BID 02/06/25 02/06/25 History clavulanate 125 mg tablet Past Med/Surg History Problem List (Updated 02/06/25 @ 18:54 by Cathy Hill PA-C) Abdominal pain, left lower quadrant (Acute) Perforated bowel (Acute) Abdominal pain Diverticulitis large intestine Medical History (Updated 02/06/25 @ 18:54 by Cathy Hill PA-C) Anxiety and depression Surgical History (Updated 02/06/25 @ 18:56 by Cathy Hill PA-C) Status post tonsillectomy and adenoidectomy Family History (Updated 02/06/25 @ 18:55 by Cathy Hill PA-C) Mother Diabetes Hypertension Sister Diabetes Grandfather (Maternal) Diabetes Hypertension Social History Smoking Status: Never smoker Hx Alcohol Use: No Hx Substance Use: No Preferred Language: Croatian Communication Ability: Effective Family Law Mediator Required: No Beliefs That Will Affect Care: None Current Living Situation: Family Feels Safe at Home: Yes Assistive Devices: None Review of Systems Review of Systems: All systems reviewed & are unremarkable except as noted in HPI & below Physical Exam Physical Exam: General: no distress, obese female Head: normocephalic, atraumatic Eyes: conjunctiva non-injected, anicteric ENT: normal inspection external ears, nose, mucous membranes moist Neck: supple, trachea midline Lungs: clear, no respiratory distress, no wheezing/rhonchi/rales CV: RRR, no pretibial edema Abd: normal BS, soft, +mild tenderness to palpation LLQ, RLQ without rebound or guarding Ext: no cyanosis, no calf tenderness Neuro: A&O x 3, no focal deficits noted, normal affect Skin: warm, dry Results & Data Results & Data Vital Signs (Past 12 Hours) Vital Signs Temp Pulse Pulse Resp BP BP Pulse Ox 02/06/25 16:55 110 H 16 126/71 99 02/06/25 16:12 116 H 16 131/95 97 02/06/25 16:09 02/06/25 16:05 115 H 02/06/25 15:48 37.7 C H 124 H 20 88/54 L 97 O2 Del Method 02/06/25 16:55 Room Air 02/06/25 16:12 Room Air 02/06/25 16:09 Room Air 02/06/25 16:05 02/06/25 15:48 Room Air Laboratory Results Short CBC 02/06/25 Range/Units 16:55 WBC 11.72 H (4.8-10.8) K/ul Hgb 11.1 L (12.0-16.0) g/dl Hct 34.3 L (37.0-47.0) % Plt Count 271 (130-400) K/uL BMP 02/06/25 15:58 Sodium 137 Potassium 3.6 Chloride 106 Carbon Dioxide 23 BUN 8 Creatinine 0.52 L Glucose 87 Calcium 8.9 Liver Function 02/06/25 Range/Units 15:58 Total Bilirubin 1.0 (0.2-1.0) mg/dl AST 13 (13-39) U/L ALT 20 (7-52) U/L Alkaline Phosphatase 88 (34-104) U/L Albumin 4.1 (3.4-5.0) gm/dl Urine 02/06/25 Range/Units 16:37 Urine Color Yellow Urine Appearance Clear (Clear) Urine pH 7.0 (4.5-7.5) Ur Specific [place] 1.008 (1.000-1.030) Urine Protein Negative (Negative) Urine Glucose (UA) Negative (Negative) Diagnostic Findings Abdomen/Pelvis CT 02/06/25 16:04 EXAMINATION: CT of the abdomen and pelvis performed after the administration of IV contrast TECHNIQUE: Helical CT images from the lung bases through the symphysis pubis were obtained with contrast. Coronal and sagittal reformatted images were generated at a workstation for further assessment. Dose reduction techniques were achieved by using automatic exposure control and/or adjustment of mA and/or kV according to patient size and/or use of iterative reconstruction technique. COMPARISON: February 14, 2024 HISTORY: Abdominal pain FINDINGS: The lung bases are clear. No pneumoperitoneum. No pneumatosis. There is a left L5 pars defect noted. No acute fractures. The liver, gallbladder, pancreas, spleen, and adrenal glands are unremarkable. The main portal vein is patent. Normal caliber abdominal aorta. No retroperitoneal or pelvic lymphadenopathy. 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 No hydronephrosis. The bladder is unremarkable. An intrauterine device appears in good position. There is focal thickening and pericolonic fat stranding at the mid sigmoid colon consistent with an acute diverticulitis. No perforation or abscess identified. No evidence for bowel obstruction. Normal appendix. IMPRESSION: 1. Acute sigmoid diverticulitis. No perforation or abscess Electronically signed by Stanley Mathew 02-06-2025 5:05 PM Supervising Physician Co-Signing Physician Notes Attending addendum: The patient was seen and examined in the emergency room She is back with increasing pain in the left lower quadrant and across without nausea no vomiting No fever and no chills does not have any constipation On examination Lying in bed without any acute distress Hemodynamically stable and is afebrile Chestclear to auscultate bilaterally HeartS1-S2, regular Abdomentender in the left lower quadrant without guarding and rigidity and bowel sound present Extremitiesno edema Her labs and imaging studies reviewed Assessment and plan Recurrent acute sigmoid diverticulitis without abscess and/or perforation Failed outpatient Augmentin with recent hospitalization Will be admitted to medical floor and will be given intravenous Zosyn Likely to be discharged on oral Cipro and Flagylcorrect dose should be prescribed and correct number of pills She has an appointment for outpatient colonoscopy in first week of March and we will keep that If the symptoms get worse she will need to be seen by surgery and possibly GI Agree with assessment plan as outlined above by Cathy Hill PA-C and take the full responsibility of care in the hospital Dr Murphy Gonsales
[2025-02-06] MEDS: AMPICILLIN/SULBACTAM SOD 3,000 MG/100 ML BAG IV STA (18:30)
[2025-02-06] MEDS: SODIUM CHLORIDE 0.9% 1,000 ML IV ONE (19:12)
[2025-02-06] MEDS ORDERED: POLYETHYLENE (MIRALAX) 17 GM PACK PO PRN (19:58)
[2025-02-06] MEDS: PIPERACILLIN/TAZOBACTAM 4.5 GM/100 ML BAG IV ONE (20:16)
[2025-02-06] MEDS: SODIUM CHLORIDE 0.9% 1,000 ML IV SCH (21:09)
[2025-02-06] MEDS: ACETAMINOPHEN 325 MG TAB PO PRN (21:14)
[2025-02-07] MEDS: PIPERACILLIN/TAZOBACTAM 4.5 GM/100 ML BAG IV SCH (00:03)
[2025-02-07] MEDS: ONDANSETRON INJ 2 MG/ML 2 ML VIAL IV PRN (03:59)
[2025-02-07 07:01] LABS: Hematocrit (blood only) 32.8 % (37.0-47.0); Hemoglobin 10.9 g/dl (12.0-16.0); Immature Granulocytes # (auto) 0.03 K/uL (0.01-0.20); Immature Granulocytes % (auto) 0.3 %; Mean Corpuscular Hemoglobin 27.9 pg (25.0-34.0); Mean Corpuscular Volume 84.1 fL (80.0-100.0); Platelet Count 262 K/uL (130-400); RDW Standard Deviation 38.2 fL (36.4-46.3); Red Blood Count 3.90 M/uL (4.20-5.40); White Blood Count 10.07 K/ul (4.8-10.8)
[2025-02-07 07:23] LABS: Anion Gap 6.0 (3-11); Blood Urea Nitrogen 4.0 mg/dl (6-23); Calcium 7.8 mg/dl (8.6-10.3); Carbon Dioxide 23.0 mmol/L (21-32); Chloride 110.0 mmol/L (98-107); Creatinine Clr Calc Pharmacy 193.6 ml/min; Glucose 83.0 mg/dl (70-99(Fasting)); Potassium 3.4 mmol/L (3.5-5.1); Sodium 139.0 mmol/L (136-145)
--- NOTE | 2025-02-07 07:56 | Hospitalist Progress Note ---
Date of Service February 07, 2025 Assessment & Plan (1) Diverticulitis large intestine: (2) Abdominal pain: Plan: Patient is a 34-year-old female with PMH recurrent diverticulitis, depression presented to ER with complaint of recurrent abdominal pain x 1 week, worsened over past 2 days. Recent hospital admission 01/18/2025-01/22/2025 for diverticulitis and was treated with IV Zosyn with improvement of symptoms in hospital. Was discharged on Cipro and Flagyl, however only 4 day course of Cipro and 11 day course of Flagyl. (possible rx error). PCP gave Augmentin which finished today. Fever today. In ER T: 37.7C, P: 124, R: 20, BP 88/54, 97% on room air In ER given 1L NSS, Unasyn, IV Tylenol WBC: 11.[address] abd/pelvis: There is focal thickening and pericolonic fat stranding at the mid sigmoid colon consistent with an acute diverticulitis. No perforation or abscess identified. No evidence for bowel obstruction Patient reassessed at 18:30 on admission. P: 93, BP: 113/66, R: 24, 99% on RA. Lungs clear to auscultation Suspect unresolved diverticulitis IVF Zosyn NPO -> will advance to clear liquid now CBC, BMP in am Is scheduled for outpatient colonoscopy 03/06/25 with [facility] 02/07/25 Pt feels better, abd. pain improved - will advance diet to clear liquids, cont. IV abx and cont. to closely monitor. Last evening Tmax 37.9C, currently afebrile #Microscopic hematuria Trace blood noted on UA today. Was also noted on 01/18/25 UA, however pt was menstruating at time Will need further outpatient follow up #Depression, Anxiety Not currently on treatment DVT Prophylaxis SCDs Admit med tele Full Code as per discussion with pt Follows with Dr Crockett at [facility] for routine care Admission and Anticipated Discharge Date Admission Date: February 06, 2025 Subjective Pt seen in follow up of diverticulitis, recurrent, recently admitted for same Currently, sitting up in bed in NAD, reports lower abd. pain feels improved today Yesterday temp. 37.9C, currently afebrile. Reports had BM yesterday and very uncomfortable when having BM No chest pain or shortness of breath Review of Systems Review of Systems: All systems reviewed & are unremarkable except as noted in Subjective Physical Exam Physical Exam: General: no distress, obese female Head: normocephalic, atraumatic Eyes: conjunctiva non-injected, anicteric ENT: normal inspection external ears, nose, mucous membranes moist Neck: supple Lungs: clear, no respiratory distress, no wheezing/rhonchi/rales CV: RRR, no pretibial edema Abd: normal BS, soft, +mild tenderness to palpation LLQ, RLQ without rebound or guarding Ext: no LE edema, moves extremities Neuro: A&O x 3, no focal deficits noted, normal affect Skin: warm, dry Results & Data Results & Data Vital Signs (Past 12 Hours) Vital Signs Temp Pulse Pulse Resp BP BP Pulse Ox 02/07/25 06:51 86 02/07/25 03:02 37.1 C 97 H 18 117/79 100 02/06/25 22:51 37 C 118/73 02/06/25 22:05 37.9 C H 96 H 15 99/68 L 97 02/06/25 21:47 98 H 02/06/25 20:28 103 H 02/06/25 20:10 37.6 C H 97 H 14 130/84 99 O2 Del Method 02/07/25 06:51 02/07/25 03:02 Room Air 02/06/25 22:51 02/06/25 22:05 Room Air 02/06/25 21:47 02/06/25 20:28 02/06/25 20:10 Room Air Laboratory Results 02/07/25 02/06/25 02/06/25 Range/Units 06:08 16:55 16:37 WBC 10.07 11.72 H (4.8-10.8) K/ul RBC 3.90 L 4.06 L (4.20-5.40) M/uL Hgb 10.9 L 11.1 L (12.0-16.0) g/dl Hct 32.8 L 34.3 L (37.0-47.0) % MCV 84.1 84.5 (80.0-100.0) fL MCH 27.9 27.3 (25.0-34.0) pg MCHC 33.2 32.4 (32.0-36.0) g/dL RDW Std Deviation 38.2 37.7 (36.4-46.3) fL RDW Coeff of Radha 12.5 12.5 (11.5-14.5) % Plt Count 262 271 (130-400) K/uL MPV 11.2 10.9 (9.4-12.4) fL Immature Gran % (Auto) 0.3 0.3 % Neut % (Auto) 72.9 82.7 % Lymph % (Auto) 18.8 10.3 % [place] % (Auto) 7.0 6.3 % Eos % (Auto) 0.7 0.1 % Baso % (Auto) 0.3 0.3 % Neut # (Auto) 7.35 H 9.69 H (1.40-6.50) K/uL Lymph # (Auto) 1.89 1.21 (1.20-3.40) K/uL [place] # (Auto) 0.70 H 0.74 H (0.11-0.59) K/uL Eos # (Auto) 0.07 0.01 (0.00-0.50) K/uL Baso # (Auto) 0.03 0.03 (0.00-0.20) K/uL Immature Gran # (Auto) 0.03 0.04 (0.01-0.20) K/uL Sodium 139 (136-145) mmol/L Potassium 3.4 L (3.5-5.1) mmol/L Chloride 110 H (98-107) mmol/L Carbon Dioxide 23 (21-32) mmol/L Anion Gap 6 (3-11) BUN 4 L (6-23) mg/dl Creatinine 0.46 L (0.6-1.2) mg/dl Est Cr Clr Drug Dosing 193.6 ml/min eGFR 128.70 BUN/Creatinine Ratio 8.7 L (10-20) Glucose 83 (70-99(Fasting)) mg/dl Lactate (0.4-2.0) mmol/L Calcium 7.8 L (8.6-10.3) mg/dl Total Bilirubin (0.2-1.0) mg/dl AST (13-39) U/L ALT (7-52) U/L Alkaline Phosphatase (34-104) U/L Total Protein (6.0-8.3) gm/dl Albumin (3.4-5.0) gm/dl Globulin (2.5-4.0) gm/dl Albumin/Globulin Ratio (0.9-2) Lipase (11-82) U/L HCG, Qual (Negative) Urine Color Yellow Urine Appearance Clear (Clear) Urine pH 7.0 (4.5-7.5) Ur Specific [place] 1.008 (1.000-1.030) Urine Protein Negative (Negative) Urine Glucose (UA) Negative (Negative) Urine Ketones Trace H (Negative) Urine Blood Trace H (Negative) Urine Nitrite Negative (Negative) Urine Bilirubin Negative (Negative) Urine Urobilinogen Negative (Negative) Ur Leukocyte Esterase Negative (Negative) Urine WBC (Auto) 0-5 (0-5) /hpf Urine RBC (Auto) 0-2 (0-2) /hpf U Hyaline Cast (Auto) 0-2 (0-2) /lpf U Epithel Cells (Auto) 0-2 (0-2) /hpf Urine Bacteria (Auto) None Seen (None Seen) Urine Comment 02/06/25 Range/Units 15:58 WBC (4.8-10.8) K/ul RBC (4.20-5.40) M/uL Hgb (12.0-16.0) g/dl Hct (37.0-47.0) % MCV (80.0-100.0) fL MCH (25.0-34.0) pg MCHC (32.0-36.0) g/dL RDW Std Deviation (36.4-46.3) fL RDW Coeff of Radha (11.5-14.5) % Plt Count (130-400) K/uL MPV (9.4-12.4) fL Immature Gran % (Auto) % Neut % (Auto) % Lymph % (Auto) % [place] % (Auto) % Eos % (Auto) % Baso % (Auto) % Neut # (Auto) (1.40-6.50) K/uL Lymph # (Auto) (1.20-3.40) K/uL [place] # (Auto) (0.11-0.59) K/uL Eos # (Auto) (0.00-0.50) K/uL Baso # (Auto) (0.00-0.20) K/uL Immature Gran # (Auto) (0.01-0.20) K/uL Sodium 137 (136-145) mmol/L Potassium 3.6 (3.5-5.1) mmol/L Chloride 106 (98-107) mmol/L Carbon Dioxide 23 (21-32) mmol/L Anion Gap 8 (3-11) BUN 8 (6-23) mg/dl Creatinine 0.52 L (0.6-1.2) mg/dl Est Cr Clr Drug Dosing 169.0 ml/min eGFR 124.95 BUN/Creatinine Ratio 15.4 (10-20) Glucose 87 (70-99(Fasting)) mg/dl Lactate 0.7 (0.4-2.0) mmol/L Calcium 8.9 (8.6-10.3) mg/dl Total Bilirubin 1.0 (0.2-1.0) mg/dl AST 13 (13-39) U/L ALT 20 (7-52) U/L Alkaline Phosphatase 88 (34-104) U/L Total Protein 7.4 (6.0-8.3) gm/dl Albumin 4.1 (3.4-5.0) gm/dl Globulin 3.3 (2.5-4.0) gm/dl Albumin/Globulin Ratio 1.2 (0.9-2) Lipase 12 (11-82) U/L HCG, Qual Negative (Negative) Urine Color Urine Appearance (Clear) Urine pH (4.5-7.5) Ur Specific [place] (1.000-1.030) Urine Protein (Negative) Urine Glucose (UA) (Negative) Urine Ketones (Negative) Urine Blood (Negative) Urine Nitrite (Negative) Urine Bilirubin (Negative) Urine Urobilinogen (Negative) Ur Leukocyte Esterase (Negative) Urine WBC (Auto) (0-5) /hpf Urine RBC (Auto) (0-2) /hpf U Hyaline Cast (Auto) (0-2) /lpf U Epithel Cells (Auto) (0-2) /hpf Urine Bacteria (Auto) (None Seen) Urine Comment Medications Administered Current Inpatient Medications Acetaminophen (Acetaminophen 325 Mg Tab) 650 mg PO Q4H PRN PRN Reason: Pain or Fever Stop: 03/08/25 19:57 Last Admin: 02/07/25 03:58 Dose: 650 mg Heparin Sodium (Porcine) (Heparin Sod 5,000 Unit/0.5 Ml Vial) 5,000 units SQ Q12 [facility] Stop: 03/09/25 08:59 Sodium Chloride (Nss) 1,000 mls @ 125 mls/hr IV .Q8H [facility] Stop: 02/07/25 11:59 Last Admin: 02/07/25 04:57 Dose: 125 mls/hr Piperacillin Sod/Tazobactam Sod (Zosyn) 4.5 gm in 100 mls @ 25 mls/hr IV Q8H [facility]; Protocol Stop: 02/17/25 00:00 Last Infusion: 02/07/25 04:16 Dose: Infused Ondansetron HCl (Ondansetron Inj 2 Mg/Ml 2 Ml Vial) 4 mg IV Q6H PRN PRN Reason: Nausea Stop: 03/08/25 19:57 Last Admin: 02/07/25 03:59 Dose: 4 mg Polyethylene Glycol (Polyethylene (Miralax) 17 Gm Pack) 17 gm PO DAILY PRN PRN Reason: Constipation Stop: 03/08/25 19:57
[2025-02-07 09:08] LABS: Magnesium 2.1 mg/dl (1.7-2.4)
[2025-02-07] MEDS: POTASSIUM CHLORIDE / WTR 10 MEQ/100 ML PLCT IV SCH (09:45)
[2025-02-07] MEDS: HEPARIN SOD 5,000 UNIT/0.5 ML VIAL SQ SCH (10:15)
[2025-02-07 22:44] LABS: Cdiff Toxin B Gene (2yr or >) Negative Cdiff Gene (Neg)
[2025-02-07 23:23] LABS: Adenovirus F 40/41 PCR Not Detected (NotDetected); Campylobacter PCR Not Detected (NotDetected); Enteroaggregative E.coli(EAEC) Not Detected (NotDetected); Shiga-like Toxin E.coli (STEC) Not Detected (NotDetected); Vibrio species PCR Not Detected (NotDetected)
[2025-02-08 07:46] LABS: Hematocrit (blood only) 33.3 % (37.0-47.0); Hemoglobin 11.1 g/dl (12.0-16.0); Immature Granulocytes # (auto) 0.02 K/uL (0.01-0.20); Immature Granulocytes % (auto) 0.3 %; Mean Corpuscular Hemoglobin 27.9 pg (25.0-34.0); Mean Corpuscular Volume 83.7 fL (80.0-100.0); Platelet Count 271 K/uL (130-400); RDW Standard Deviation 37.1 fL (36.4-46.3); Red Blood Count 3.98 M/uL (4.20-5.40); White Blood Count 7.44 K/ul (4.8-10.8)
[2025-02-08 08:00] LABS: Anion Gap 6.0 (3-11); Blood Urea Nitrogen 3.0 mg/dl (6-23); Calcium 8.3 mg/dl (8.6-10.3); Carbon Dioxide 25.0 mmol/L (21-32); Chloride 108.0 mmol/L (98-107); Creatinine Clr Calc Pharmacy 193.5 ml/min; Glucose 79.0 mg/dl (70-99(Fasting)); Magnesium 2.2 mg/dl (1.7-2.4); Potassium 3.5 mmol/L (3.5-5.1); Sodium 139.0 mmol/L (136-145)
[2025-02-08] MEDS: POTASSIUM CHLORIDE 10 MEQ TABCR PO ONE (10:07)
[2025-02-08] MEDS: ADVANCED PROBIOTIC 625 MG CAPSULE PO SCH (12:43)
--- NOTE | 2025-02-08 14:28 | Hospitalist Progress Note ---
Date of Service February 08, 2025 Assessment & Plan (1) Diverticulitis large intestine: (2) Abdominal pain: Plan: Patient is a 34-year-old female with PMH recurrent diverticulitis, depression presented to ER with complaint of recurrent abdominal pain x 1 week, worsened over past 2 days. Recent hospital admission 01/18/2025-01/22/2025 for diverticulitis and was treated with IV Zosyn with improvement of symptoms in hospital. Was discharged on Cipro and Flagyl, however only 4 day course of Cipro and 11 day course of Flagyl. (possible rx error). PCP gave Augmentin which finished today. Fever today. Acute sigmoid diverticulitis --CT ABD:Acute sigmoid diverticulitis. No perforation or abscess -- Blood cultures negative to date --Stool PCR, stool for C. difficile negative --FOBT negative --Received IV fluids - Continue Zosyn -- Advance to low fiber diet today -- Scheduled for outpatient colonoscopy on 03/06/2025 Microscopic hematuria Trace blood noted on UA today. Was also noted on 01/18/25 UA, however pt was menstruating at time Follow-up as outpatient Obesity BMI 38.7 Recommend lifestyle changes Depression, Anxiety Not currently on treatment DVT Px: SCDs Encouraged to ambulate CODE STATUS Full code Disposition Expect to discharge home Admission and Anticipated Discharge Date Admission Date: February 06, 2025 Subjective Patient is seen and examined at bedside States feeling much better today Abdominal pain much improved Tolerating current diet Prefers to be started on regular diet Denies any chest pain, dyspnea, nausea, vomiting, dizziness Review of Systems Review of Systems: All systems reviewed & are unremarkable except as noted in Subjective Physical Exam Physical Exam: Physical Exam: Vitals signs as noted above General Appearance:Obese, no apparent distress Head: normocephalic, Atraumatic Eyes: normal inspection, EOMI Neck: supple, Trachea midline Respiratory/Chest: Normal breath sounds, CTA, No accessory muscle use Cardiovascular: S1, S2, No murmur Abdomen/GI:Soft, Non tender, Bowel sounds present Extremities/Musculoskeletal:normal inspection, no edema Neurologic/Psych:AAOX3, grossly no focal neurological deficits Skin: normal color, warm Results & Data Results & Data Vital Signs (Past 12 Hours) Vital Signs Temp Pulse Pulse Resp BP BP Pulse Ox 02/08/25 14:00 83 02/08/25 11:24 36.8 C 69 20 121/83 98 02/08/25 08:01 36.7 C 79 20 123/81 99 02/08/25 08:00 85 02/08/25 02:34 36.8 C 77 18 111/75 97 O2 Del Method 02/08/25 14:00 02/08/25 11:24 Room Air 02/08/25 08:01 Room Air 02/08/25 08:00 02/08/25 02:34 Room Air Laboratory Results Short CBC 02/08/25 Range/Units 07:07 WBC 7.44 (4.8-10.8) K/ul Hgb 11.1 L (12.0-16.0) g/dl Hct 33.3 L (37.0-47.0) % Plt Count 271 (130-400) K/uL BMP 02/08/25 07:07 Sodium 139 Potassium 3.5 Chloride 108 H Carbon Dioxide 25 BUN 3 L Creatinine 0.46 L Glucose 79 Calcium 8.3 L
[2025-02-08 15:58] VITALS: RESP 16
[2025-02-08] MEDS: LOPERAMIDE HCL 2 MG CAP PO PRN (16:53)
[2025-02-09 06:13] LABS: Hematocrit (blood only) 35.2 % (37.0-47.0); Hemoglobin 11.5 g/dl (12.0-16.0); Mean Corpuscular Hemoglobin 27.2 pg (25.0-34.0); Mean Corpuscular Volume 83.2 fL (80.0-100.0); Platelet Count 303 K/uL (130-400); RDW Standard Deviation 37.6 fL (36.4-46.3); Red Blood Count 4.23 M/uL (4.20-5.40); White Blood Count 5.76 K/ul (4.8-10.8)
[2025-02-09 06:39] LABS: Anion Gap 7.0 (3-11); Blood Urea Nitrogen 4.0 mg/dl (6-23); Calcium 8.6 mg/dl (8.6-10.3); Carbon Dioxide 25.0 mmol/L (21-32); Chloride 108.0 mmol/L (98-107); Creatinine Clr Calc Pharmacy 171.2 ml/min; Glucose 85.0 mg/dl (70-99(Fasting)); Magnesium 2.2 mg/dl (1.7-2.4); Potassium 3.5 mmol/L (3.5-5.1); Sodium 140.0 mmol/L (136-145)
[2025-02-09 07:13] VITALS: BP 114/74; PULSE 68; TEMP 98.2; O2SAT 98
--- NOTE | 2025-02-09 11:00 | Discharge Summary ---
Discharge Summary Date of Service February 09, 2025 Principal Dx & Hospital Course #1 = Principal Diagnosis (1) Diverticulitis large intestine: (2) Abdominal pain: Patient is a 34-year-old female with PMH recurrent diverticulitis, depression presented to ER with complaint of recurrent abdominal pain x 1 week, worsened over past 2 days. Recent hospital admission 01/18/2025-01/22/2025 for diverticulitis and was treated with IV Zosyn with improvement of symptoms in hospital. Was discharged on Cipro and Flagyl, however only 4 day course of Cipro and 11 day course of Flagyl. Acute sigmoid diverticulitis CT ABD:Acute sigmoid diverticulitis. No perforation or abscess Blood cultures negative to date Stool PCR, stool for C. difficile negative FOBT negative Received IV fluids Advance to low fiber diet today, tolerating Discharge on Cipro/Flagyl course to complete 10 days Continue probiotic Scheduled for outpatient colonoscopy on 03/06/2025 Microscopic hematuria Trace blood noted on UA today. Was also noted on 01/18/25 UA, however pt was menstruating at time Follow-up as outpatient Obesity BMI 38.7 Recommend lifestyle changes Depression, Anxiety Not currently on treatment Discharging home today with follow up through [facility]. Notes For Next Care Provider diverticulitis, follow up with [facility] Medication Changes From Visit Cipro/Flagyl course, probiotic Admission HPI Per Admitting Provider Patient is a 34-year-old female with PMH recurrent diverticulitis, depression presented to ER with complaint of abdominal pain. Per inpatient chart review recent hospital admission 01/18/2025-01/22/2025 for diverticulitis with concern for possible perforation on CT scan and was treated with IV Zosyn with improvement of symptoms in hospital. During that admission GI and general surgery was consulted and conservative measures were advised with colonoscopy in 6/8 weeks and was discharged on Cipro and Flagyl. Patient finished 4 day course of Cipro and 11 day course of Flagyl. States followed with PCP ([facility]) and given course of Augmentin which she finished today. She states last week started with some lower abdominal discomfort again. She states she did eat more over the weekend with the holiday. Past two days with increased discomfort across lower abdomen and worse with having BM. States past 2 days with soft BMs but gets sharp pain to left lower abdomen and has immediate soft BM. She states LMP about one month ago. Today seen by PCP and noted to have fever and referred to hospital for further evaluation. Denies diaphoresis, N/V, melena, hematochezia, SHERMAN, dizziness, syncope, CP, SOB, palpitations, cough, sore throat, rhinorrhea, weakness, extremity edema, rashes, urinary symptoms. She reports is scheduled for colonoscopy in March 2025. Outpatient 01/17/25 CT Abd/pelvis: Rectosigmoid wall thickening with adjacent irregular 5.0 cm soft tissue attenuation and surrounding inflammatory changes and possible focus of free air. Differentials include rectosigmoid colitis with contained perforation, inflammatory bowel disease of the rectosigmoid with developing fistula versus malignancy. Colonoscopy is recommended following treatment. Admission Exam Per Admitting Provider Patient is a 34-year-old female with PMH recurrent diverticulitis, depression presented to ER with complaint of abdominal pain. Per inpatient chart review recent hospital admission 01/18/2025-01/22/2025 for diverticulitis with concern for possible perforation on CT scan and was treated with IV Zosyn with improvement of symptoms in hospital. During that admission GI and general surgery was consulted and conservative measures were advised with colonoscopy in 6/8 weeks and was discharged on Cipro and Flagyl. Patient finished 4 day course of Cipro and 11 day course of Flagyl. States followed with PCP (ERICA) and given course of Augmentin which she finished today. She states last week started with some lower abdominal discomfort again. She states she did eat more over the weekend with the holiday. Past two days with increased discomfort across lower abdomen and worse with having BM. States past 2 days with soft BMs but gets sharp pain to left lower abdomen and has immediate soft BM. She states LMP about one month ago. Today seen by PCP and noted to have fever and referred to [facility] for further evaluation. Denies diaphoresis, N/V, melena, hematochezia, SHERMAN, dizziness, syncope, CP, SOB, palpitations, cough, sore throat, rhinorrhea, weakness, extremity edema, rashes, urinary symptoms. She reports is scheduled for colonoscopy in March 2025. Outpatient 01/17/25 CT Abd/pelvis: Rectosigmoid wall thickening with adjacent irregular 5.0 cm soft tissue attenuation and surrounding inflammatory changes and possible focus of free air. Differentials include rectosigmoid colitis with contained perforation, inflammatory bowel disease of the rectosigmoid with developing fistula versus malignancy. Colonoscopy is recommended following treatment. Discharge Exam Gen: WD/WN, NAD, sitting in bedside chair, A&Ox3 HEENT: Normocephalic, atraumatic, mucous membranes moist Lung: Clear to Auscultation bilaterally Heart: Regular rate, regular rhythm Abdomen: Soft, NT, ND +BS x 4 Extremities: no edema Skin: Warm, no rash Updated Medication List Medication Instructions Recorded Confirmed Type L.acidop,casei,lactis,rham-B.lact,alon 1 cap PO DAILY #30 caps 02/09/25 Rx 625 mg (10 billion cell) capsule (Advanced Probiotic) acetaminophen 500 mg tablet 1,000 mg (2 x 500 mg) PO Q8H PRN 02/09/25 02/06/25 Rx Pain #0 tabs ciprofloxacin HCl 500 mg tablet 500 mg PO BID #15 tabs 02/09/25 Rx metronidazole 500 mg tablet 500 mg PO Q8H 7 days #23 tabs 02/09/25 Rx Hospital Stay Data Consultations 02/06/25 18:15 ED Decision to Admit Stat Diagnostic Imagining Performed 02/06/25 16:04 CT abd pelvis IV con only Stat Pending Results Patient Have Any Pending Studies at Discharge: Yes Discharge Instructions Given to Patient (Per Discharging Provider) Follow-up with your primary care physician Dr. Crockett in 1 week -- Complete the antibiotic course as prescribed --You are incidentally noted to have minimal blood in urinalysis. This is thought to be likely secondary to your menstrual period. Consider repeating urine as outpatient and if it still is abnormal, discuss with your primary care physician for further evaluation as outpatient. Seek immediate medical attention if your symptoms reoccur or worsen Please review medication list provided on discharge for any medication changes as instructed. Please call if you have any questions or problems. You can reach a [facility] hospitalist on duty at [facility] 24 hours a day by calling [phone] Total Time Total Time Spent Total Time Spent (In Minutes): 40 Supervising Physician Co-Signing Physician Notes Patient is seen and examined on day of discharge. Abdominal pain resolved. Tolerated low fiber diet. No abdominal tenderness on exam. Advised to continue low fiber diet on discharge. Also advised to get colonoscopy as previously scheduled. Plan to transition to [facility] on discharge to complete the antibiotic course. I personally interviewed and examined the patient at bedside. I have reviewed the advanced practitioner's documentation on the date of service referred in note and agree with plan. Patient's care is coordinated with Katia Harris PA-C. Please refer to the documentation above for details of patient's presentation and for discussion of other issues. I spent a total [id number] coordinating, documenting, and providing care for this patient excluding time spent in the performance of separately billed services or time spent by another provider/QHP.
== END 2025-02-09 12:23 | disposition home or self-care (01) | DRG 392 ==
LOC: ED 15:45 → 2N 18:12 → SUATTDRO 18:12 → 2N 19:45 → 3W 02-08 21:31